=== PATIENT | female | born 1970 | race Caucasian/White ===

== ENCOUNTER 2020-01-01 11:03 | Outpatient (REF) | payer OTHER, SELFPAY | END 2020-01-01 11:04 | disposition home or self-care (01) | LOC: HO.HAP 11:03 | PROVIDERS: PCP Internal Medicine; Referring Provider Internal Medicine; Visit Provider Internal Medicine | DX: Z46.1 Encounter for fitting and adjustment of hearing aid (principal) | CPT/HCPCS: V5266 ==

== ENCOUNTER 2020-06-04 | Outpatient (REF) | payer OTHER, SELFPAY | END 2020-06-04 00:01 | LOC: HO.HAP | PROVIDERS: Visit Provider Internal Medicine | DX: Z46.1 Encounter for fitting and adjustment of hearing aid (principal) | CPT/HCPCS: V5266 ==

== ENCOUNTER 2020-12-02 17:20 | Inpatient (IN) | payer OTHER, SELFPAY ==
--- NOTE | ~2020-12-02 | US_ITS ---
EXAMINATION: US ABDOMEN LIMITED CLINICAL INFORMATION: Right upper quadrant pain. COMPARISON: None TECHNIQUE: Real-time imaging of the right upper quadrant abdominal viscera. FINDINGS: PANCREAS: Normal. LIVER: There is increased hepatic parenchymal attenuation which limits evaluation of subtle lesions. Accounting for these limitations, no focal abnormalities are identified. There is no biliary ductal dilatation. GALLBLADDER: There are multiple gallbladder stones with a small amount of pericholecystic fluid but no gallbladder wall thickening which measures up to 0.3 cm . There are a few hyperechoic foci in the wall of the gallbladder with comet tail artifact, likely related with adenomyomatosis. COMMON BILE DUCT: Normal in caliber measuring 0.3 cm in diameter. RIGHT KIDNEY: Normal. No hydronephrosis. No renal calculi or focal parenchymal lesions. The kidney measures 10.1 cm in maximum dimension. FREE FLUID: None. US/US abdomen limited IMPRESSION: Cholelithiasis with small amount of pericholecystic fluid but no wall thickening and a negative Urbina's sign. Findings are equivocal for cholecystitis and if clinically suspected, recommend further evaluation with a hepatobiliary nuclear medicine study. Adenomyomatosis. Hepatic steatosis and/or hepatocellular disease.
[2020-12-02 19:24] VITALS: BP 120/60; PULSE 69; RESP 16; TEMP 36.7; O2SAT 95; BMI 37.2
[2020-12-02 20:05] LABS: MANUAL DIFF FLAG NO
[2020-12-02 20:16] LABS: Basophils Percent Auto 0.3 % (0-2); Eosinophils Absolute Auto 0.2 X10*3/uL (0.0-0.4); Eosinophils Percent Auto 2.3 % (0-4); Hematocrit 47.1 % (37-47); Hemoglobin 15.9 g/dl (12.0-16.0); Imm Gran Abs Auto 0.03 X10*3/uL (0.00-0.03); Imm Gran Pct Auto 0.3 % (0.0-0.4); Lymphocytes Absolute Auto 3.1 X10*3/uL (1.2-4.9); Lymphocytes Percent Auto 33.2 % (20-40); Mean Corpuscular HGB Conc 33.8 g/dl (31.0-35.0); Mean Corpuscular Hemoglobin 31.7 pg (27.0-33.0); Mean Corpuscular Volume 93.8 fL (80-98); Mean Platelet Volume 9.5 fL (9.4-12.3); Monocytes Absolute Auto 0.6 X10*3/uL (0.1-1.2); Monocytes Percent Auto 6.9 % (2-11); Neutrophils Absolute Auto 5.3 X10*3/uL (2.0-8.3); Platelet Count 241 X10*3/uL (160-400); Red Blood Count 5.02 X10*6/uL (4.20-5.50); Red Cell Distribution Width 12.6 % (11.0-16.0); White Blood Count 9.3 X10*3/uL (4.8-10.8)
[2020-12-02 20:19] LABS: Anion Gap 12 (12-20); Blood Urea Nitrogen 11 mg/dL (9-16); Calcium 9.6 mg/dL (8.4-10.2); Carbon Dioxide 27 mmol/L (22-29); Chloride 104 mmol/L (96-108); Creatinine Clr Calc Pharmacy 81.2; Estimated Glomerular Filt Rate > 60; Glucose Random 93 mg/dL (60-115); Potassium 4.1 mmol/L (3.3-5.1); Sodium 139 mmol/L (135-145)
[2020-12-02 22:03] VITALS: BP 111/63; PULSE 66; RESP 14; TEMP 36.6; O2SAT 96
--- NOTE | 2020-12-02 22:28 | ED_ITS ---
HPI - Abdominal Pain General Chief Complaint: Abdominal Pain Stated Complaint: Abdominal pain Time Seen by Provider: 12/02/20 22:27 Source: patient Mode of arrival: ambulatory Limitations: no limitations History of Present Illness HPI narrative: Patient with no significant past medical history notice right upper quadrant, epigastric pain for last 2 days increases on after meals associated with nausea no vomiting no fever or chills patient does have off and on mild discomfort at upper quadrant for last few months but not been evaluated Related Data Allergies Allergy/AdvReac Type Severity Reaction Status Date / Time No Known Allergies Allergy Unverified 11/14/19 18:35 [No Known Allergies*] Review of Systems Review of Systems Yes all other systems are reviewed and are negative Physical Exam Vital Signs: Vital Signs: Last Vital Signs Temp 97.9 F 12/02/20 22:03 Pulse 66 12/02/20 22:03 Resp 14 12/02/20 22:03 BP 111/63 12/02/20 22:03 Pulse Ox 96 12/02/20 22:03 Body Mass Index 37.2 Appearance: Alert. Oriented X3. No acute distress. Eyes: No pallor or icterus ENT: Pharynx normal. Oral Mucosa moist Neck: Normal inspection. Neck supple. CVS: Normal heart rate and rhythm. Pulses normal. Respiratory: No respiratory distress. Equal air entry bilateral, no wheezing/rales/rhonchi Abdomen: Soft and tenderness right upper quadrant with guarding, Urbina sign positive+ tender epigastric area Bowel sounds are present, no mass palpable, no CVA tenderness Skin: Skin warm and dry. Normal skin color. Normal skin turgor. Extremities: No lower extremity edema. No calf tenderness Neuro: Oriented X 3. MDM - Abdominal Pain MDM Narrative Medical decision making narrative: Patient with R upper quadrant pain ultrasound showed cholelithiasis without cholecystitis finding patient is still complaining of pain very uncomfortable , Urbina sign positive, would like to get admitted for surgery will call Dr. Coates surgeon for admission Patient rapid COVID test was positive , patient already been vaccinated with COVID-19, no symptoms at this time , Hence PCR COVID test was done which was negative Differential Diagnosis Differential diagnosis: Likely abdominal pain Lab Data Attestation: I reviewed the patient's lab results. Result diagrams: 12/02/20 19:58 12/02/20 19:58 Labs: Lab Results 12/02/20 12/02/20 Range/Units 19:58 19:58 WBC 9.3 (4.8-10.8) X10*3/uL RBC 5.02 (4.20-5.50) X10*6/uL Hgb 15.9 (12.0-16.0) g/dl Hct 47.1 H (37-47) % MCV 93.8 (80-98) fL MCH 31.7 (27.0-33.0) pg MCHC 33.8 (31.0-35.0) g/dl RDW 12.6 (11.0-16.0) % Plt Count 241 (160-400) X10*3/uL MPV 9.5 (9.4-12.3) fL Immature Gran % (Auto) 0.3 (0.0-0.4) % Neut % (Auto) 57.0 (45-73) % Lymph % (Auto) 33.2 (20-40) % Gila % (Auto) 6.9 (2-11) % Eos % (Auto) 2.3 (0-4) % Baso % (Auto) 0.3 (0-2) % Lymph # (Auto) 3.1 (1.2-4.9) X10*3/uL Gila # (Auto) 0.6 (0.1-1.2) X10*3/uL Eos # (Auto) 0.2 (0.0-0.4) X10*3/uL Baso # (Auto) 0.0 (0.0-0.2) X10*3/uL Abs Immat Gran (auto) 0.03 (0.00-0.03) X10*3/uL Absolute Neuts (auto) 5.3 (2.0-8.3) X10*3/uL Absolute Nucleated RBC 0.000 (0.0-0.012) X10*3/uL Nucleated RBC % (auto) 0.0 (0.0-0.2) /100WBC Sodium 139 (135-145) mmol/L Potassium 4.1 (3.3-5.1) mmol/L Chloride 104 (96-108) mmol/L Carbon Dioxide 27 (22-29) mmol/L Anion Gap 12 (12-20) BUN 11 (9-16) mg/dL Creatinine 0.91 (0.5-1.4) mg/dL Estim Creat Clear Calc 81.2 Estimated GFR > 60 Random Glucose 93 (60-115) mg/dL Calcium 9.6 (8.4-10.2) mg/dL Total Bilirubin 0.4 (0.0-1.0) mg/dL Direct Bilirubin 0.2 (0.0-0.5) mg/dL AST 16 (5-31) U/L ALT 25 (0-31) U/L Alkaline Phosphatase 75 (39-117) U/L Total Protein 7.5 (6.5-8.0) g/dL Albumin 4.4 (3.5-5.0) g/dL Lipase 27 (8-78) U/L Discharge Plan Discharge Clinical Impression: Acute calculous cholecystitis Patient Disposition: Admitted As Inpatient [facility] Past Medical History Medical History Adult hypothyroidism Migraines Social History Social History Advance Directives: No
[2020-12-02 23:00] LABS: Alanine Aminotransferase 25 U/L (0-31); Albumin Level 4.4 g/dL (3.5-5.0); Alkaline Phosphatase 75 U/L (39-117); Aspartate Amino Transferase 16 U/L (5-31); Bilirubin Direct 0.2 mg/dL (0.0-0.5); Bilirubin Total 0.4 mg/dL (0.0-1.0); Lipase 27 U/L (8-78); Total Protein 7.5 g/dL (6.5-8.0)
[2020-12-02] MEDS: 0.9 % Sodium Chloride 1,000 ML 999 ML IVCONT (23:03)
[2020-12-02] MEDS: ondansetron HCL 4 MG/2 ML VIAL IVPUSH (23:03)
[2020-12-02] MEDS: Famotidine/PF 20 MG/2 ML VIAL IVPUSH (23:03)
[2020-12-02] MEDS: Morphine Sulfate 4 MG/ML CARTRIDGE IVPUSH (23:53)
[2020-12-03] VITALS (14 sets, daily range): BP systolic 95–144; BP diastolic 46–86; PULSE 54–76; RESP 16–22; TEMP 36.2–36.8; O2SAT 93–98
--- NOTE | 2020-12-03 | PC.NURSE ---
CALLED [facility] @[phone] FOR CALL BACK
--- NOTE | 2020-12-03 00:07 | PC.NURSE ---
Aminata returned call at [phone]
[2020-12-03 00:51] LABS: IDNOW Serial# 9DD0AD1C
[2020-12-03 00:53] LABS: COVID-19 Test Positive (Negative)
[2020-12-03] MEDS: Piperacillin Sodium/Tazobactam 3.375 GM in 0.9 % Sodium Chloride 50 ML IV (01:37)
[2020-12-03 01:43] LABS: Influenza A PCR NEGATIVE (Negative); Influenza B PCR NEGATIVE (Negative); Resp Syncy Virus RNA Qual PCR NEGATIVE (Negative); SARS COV2 PCR INHOUSE NEGATIVE (Negative)
[2020-12-03] MEDS: Dextrose 5 % and Lactated Ring 1,000 ML 125 ML IVCONT ×2 (02:32→12:17)
--- NOTE | 2020-12-03 07:42 | PM.HPGS ---
History of Present Illness History of Present Illness Date of Service: 12/03/20 Chief complaint: Acute cholecystitis Narrative: Socorro Augustin is a 50 year old female presenting with complaints of abdominal pain in the right upper quadrant radiating to the right flank. The pain is been on off for the last several weeks but increased over the last several days. The pain was associated with some nausea without vomiting. She denies fever or chills. She presented to the emergency department last evening and was noted to be tender in the right upper quadrant with a positive Urbina sign. Laboratories were normal however. Ultrasound of the abdomen revealed multiple gallstones within the gallbladder with a thickened gallbladder wall and pericholecystic fluid. A negative sonographic Urbina sign was noted however. Patient is admitted to the surgical service for treatment of acute cholecystitis. Patient was noted to be COVID positive on the rapid test but negative on the PCR testing. She denies any respiratory symptoms at this time. She is fully vaccinated for COVID-19. Review of Systems Review of Systems: Yes all other systems are reviewed and are negative Constitutional: Constitutional: Denies chills, Denies fever(s) and Reports poor appetite Cardiovascular: Cardiovascular: Denies chest pain, Reports epigastric discomfort, Denies rapid heart rate, Denies irregular heart rhythm and Denies dyspnea Respiratory: Respiratory: Denies chest congestion, Denies cough, Denies excessive phlegm production, Denies pain with cough and Denies dyspnea Gastrointestinal: Gastrointestinal: Reports as per HPI, Reports abdominal pain, Denies constipation, Reports diarrhea, Reports nausea and Denies vomiting Genitourinary: Genitourinary: Reports no additional female genitourinary complaints Musculoskeletal: Musculoskeletal: Reports no additional musculoskeletal complaints Psychiatric: Psychiatric: Reports no additional psychiatric complaints Hematologic/Lymphatic: Hematologic/Lymphatic: Denies lymphadenopathy [facility] Past Medical History Medical History Adult hypothyroidism Migraines Surgical History Surgical History H/O thyroidectomy H/O: hysterectomy Social History Social History Advance Directives: No Meds Allergies Allergy/AdvReac Type Severity Reaction Status Date / Time No Known Allergies Allergy Unverified 11/14/19 18:35 [No Known Allergies*] Active Medications: Current Medications Acetaminophen (Acetaminophen 325 Mg Tablet) 650 mg PO Q6H PRN PRN Reason: Pain, Mild (Pain Scale 1-3) Dextrose/Lactated Ringer's (D5lr) 1,000 mls @ 125 mls/hr IVCONT .Q8H [facility] Last Admin: 12/03/20 02:32 Dose: 125 mls/hr Documented by: Morphine Sulfate (Morphine Sulfate 4 Mg/Ml Cartridge) 4 mg IVPUSH Q2H PRN; Protocol PRN Reason: Pain, Severe (Pain Scale 7-10) Ondansetron HCl (Ondansetron Hcl 4 Mg/2 Ml Vial) 4 mg IVPUSH QID PRN PRN Reason: Nausea Oxycodone HCl (Oxycodone Hcl Immed Release 5 Mg Tablet) 5 mg PO Q6H PRN PRN Reason: Pain, Severe (Pain Scale 7-10) Sodium Chloride (0.9 % Sodium Chloride Flush 3 Ml Syringe) 3 ml IVFLUSH QSHIFT [facility] Zolpidem Tartrate (Zolpidem Tartrate 5 Mg Tablet) 5 mg PO BEDTIME PRN PRN Reason: Insomnia Home Medications Medication Instructions Recorded Confirmed Last Taken Type lblkgexvll-pelmzyqtufafe-tscteenj 1 tab PO DAILY MRX1 PRN 12/03/20 Unknown History 50 mg-325 mg-40 mg tablet fluocinolone acetonide oil 0.01 % 2 drp OTIC (EARS) 2XW 12/03/20 Unknown History ear drops levothyroxine 150 mcg tablet 1 tab PO DAILY 12/03/20 Unknown History propranolol 20 mg tablet 1 tab PO DAILY 12/03/20 Unknown History trazodone 50 mg tablet 1 tab PO BEDTIME 12/03/20 Unknown History venlafaxine 37.5 mg 37.5 mg PO DAILY 12/03/20 Unknown History capsule,extended release 24 hr Physical Exam Vital Signs: Vital Signs: Last Vital Signs Temp 98.2 F 12/03/20 02:06 Pulse 58 12/03/20 02:06 Resp 16 12/03/20 02:06 BP 95/46 L 12/03/20 02:06 Pulse Ox 95 12/03/20 02:06 Body Mass Index 37.2 Const: General: cooperative, comfortable, no acute distress and well developed Nutritional Appearance: well nourished Orientation/consciousness: patient oriented x3 Limitations: no limitations Eyes: Sclerae: sclerae normal EOM: EOMs intact bilaterally Resp: Effort & Inspection: normal respiratory effort, no cough and no respiratory distress Auscultation: clear to auscultation bilaterally GI: Inspection: Yes normal to inspection, Yes distended and Yes incision Palpation (GI): Soft to palpation, Tenderness to palpation present (GI) in the RUQ and Urbina's sign positive and no hernias Auscultation: normal bowel sounds Rectal Exam - Female: deferred Skin: General skin exam: no rashes or lesions noted Neuro: General: patient oriented x3 Extrem: General: Yes no clubbing, cyanosis or edema Results Results Labs: Short CBC 12/02/20 Range/Units 19:58 WBC 9.3 (4.8-10.8) X10*3/uL Hgb 15.9 (12.0-16.0) g/dl Hct 47.1 H (37-47) % Plt Count 241 (160-400) X10*3/uL BMP 12/02/20 19:58 Sodium 139 Potassium 4.1 Chloride 104 Carbon Dioxide 27 BUN 11 Creatinine 0.91 Calcium 9.6 Liver Function 12/02/20 Range/Units 19:58 Total Bilirubin 0.4 (0.0-1.0) mg/dL Direct Bilirubin 0.2 (0.0-0.5) mg/dL AST 16 (5-31) U/L ALT 25 (0-31) U/L Alkaline Phosphatase 75 (39-117) U/L Albumin 4.4 (3.5-5.0) g/dL Abdominal ultrasound report/results: image reviewed Assessment and Plan (1) Acute calculous cholecystitis: Status: Acute 50-year-old female patient presenting with pain in the right upper quadrant found to have gallstones with wall thickening suggestive of acute cholecystitis. Patient is tender in the right upper quadrant with Urbina sign. I discussed the option of non operative management with diet restriction verses cholecystectomy. The patient wishes to proceed with cholecystectomy. After discussion of the procedure, risks, and alternatives, she consents to a laparoscopic or possible open cholecystectomy. Surgery scheduled pending COVID repeat testing. Quality Stroke Does the patient have a stroke diagnosis?: No VTE Prior VTE?: No VTE Risk Level:: Surgical - moderate VTE Device Contraindication: N/A - Device Ordered VTE Drug Contraindication: Treatment Not Indicated Procedures Date of Service Date of Service: 12/03/20
--- NOTE | 2020-12-03 07:45 | PC.NURSE ---
DR. GILMORE ATT BEDSIDE, PT AWARE OF PLAN OF CARE.
[2020-12-03 07:53] LABS: COVID-19 Test Negative (Negative); IDNOW Serial# 9DD0AD1C
--- NOTE | 2020-12-03 08:21 | PHA.MEDREC ---
Pharmacy Consult ? Medication Reconciliation Pharmacy has completed the medication reconciliation. There are no remarkable issues for provider's attention. Naomi Bartlett, MatiasD
--- NOTE | 2020-12-03 08:22 | PC.NURSE ---
pt c/o slight nausea.
[2020-12-03] MEDS: ondansetron HCL 4 MG/2 ML VIAL IVPUSH (08:23)
--- NOTE | 2020-12-03 08:36 | PC.NURSE ---
RN TO RN REPORT GIVEN TO JADON ANGEL) IN PACU.
--- NOTE | 2020-12-03 09:03 | HO.ANESPROP2 ---
HPI - Anesthesia Eval Consult details Narrative: 50-year-old female presenting for cholecystectomy secondary to acute Calculous cholecystitis. [facility] Active Problems Active Problems: All Active Problems (Updated 12/03/20 @ 00:25 by Mauri Shook MD) Acute calculous cholecystitis (Acute) Past Medical History Medical History Adult hypothyroidism Migraines Family History Family history of problems with anesthesia: No Surgical History Surgical History H/O thyroidectomy H/O: hysterectomy History of Problems with Anesthesia: No Social History Social History Patient Tobacco Use Status: Current everyday Tobacco user Tobacco use type: Cigarette Cigarettes Per Day: 15 Years Smoked: 42 Meds Allergies Allergy/AdvReac Type Severity Reaction Status Date / Time No Known Allergies Allergy Verified 12/03/20 09:03 [No Known Allergies*] Active Medications: Current Medications Acetaminophen (Acetaminophen 325 Mg Tablet) 650 mg PO Q6H PRN PRN Reason: Pain, Mild (Pain Scale 1-3) Dextrose/Lactated Ringer's (D5lr) 1,000 mls @ 125 mls/hr IVCONT .Q8H [facility] Last Admin: 12/03/20 02:32 Dose: 125 mls/hr Documented by: Morphine Sulfate (Morphine Sulfate 4 Mg/Ml Cartridge) 4 mg IVPUSH Q2H PRN; Protocol PRN Reason: Pain, Severe (Pain Scale 7-10) Ondansetron HCl (Ondansetron Hcl 4 Mg/2 Ml Vial) 4 mg IVPUSH QID PRN PRN Reason: Nausea Last Admin: 12/03/20 08:23 Dose: 4 mg Documented by: Oxycodone HCl (Oxycodone Hcl Immed Release 5 Mg Tablet) 5 mg PO Q6H PRN PRN Reason: Pain, Severe (Pain Scale 7-10) Sodium Chloride (0.9 % Sodium Chloride Flush 3 Ml Syringe) 3 ml IVFLUSH QSHIFT [facility] Zolpidem Tartrate (Zolpidem Tartrate 5 Mg Tablet) 5 mg PO BEDTIME PRN PRN Reason: Insomnia Home Medications Medication Instructions Recorded Confirmed Last Taken Type levothyroxine 150 mcg tablet 1 tab PO DAILY 12/03/20 12/03/20 12/02/20 History propranolol 20 mg tablet 1 tab PO DAILY 12/03/20 12/03/20 12/01/20 History trazodone 50 mg tablet 1 tab PO BEDTIME 12/03/20 12/03/20 12/01/20 History Exam Exam Date and Time: December 03, 2020 09 Height,Weight and Vital Signs: Height 5 ft 3 in Weight 210 lb Last Vital Signs Temp 97.8 F 12/03/20 08:32 Pulse 65 12/03/20 08:32 Resp 17 12/03/20 08:32 BP 129/74 12/03/20 08:32 Pulse Ox 97 12/03/20 08:32 Pertinent Lab Results Pertinent Lab Results: Laboratory Tests 12/02/20 12/02/20 12/03/20 19:58 19:58 00:37 WBC 9.3 RBC 5.02 Hgb 15.9 Hct 47.1 H MCV 93.8 MCH 31.7 MCHC 33.8 RDW 12.6 Plt Count 241 MPV 9.5 Immature Gran % (Auto) 0.3 Neut % (Auto) 57.0 Lymph % (Auto) 33.2 Webb % (Auto) 6.9 Eos % (Auto) 2.3 Baso % (Auto) 0.3 Lymph # (Auto) 3.1 Webb # (Auto) 0.6 Eos # (Auto) 0.2 Baso # (Auto) 0.0 Abs Immat Gran (auto) 0.03 Absolute Neuts (auto) 5.3 Absolute Nucleated RBC 0.000 Nucleated RBC % (auto) 0.0 Sodium 139 Potassium 4.1 Chloride 104 Carbon Dioxide 27 Anion Gap 12 BUN 11 Creatinine 0.91 Estim Creat Clear Calc 81.2 Estimated GFR > 60 Random Glucose 93 Calcium 9.6 Total Bilirubin 0.4 Direct Bilirubin 0.2 AST 16 ALT 25 Alkaline Phosphatase 75 Total Protein 7.5 Albumin 4.4 Lipase 27 Coronavirus (PCR) COVID-19 ([facility]) Positive A COVID-19 Clin Com See Note Influenza Type A (PCR) Influenza Type B (PCR) RSV RNA Qual (PCR) 12/03/20 12/03/20 00:58 07:34 WBC RBC Hgb Hct MCV MCH MCHC RDW Plt Count MPV Immature Gran % (Auto) Neut % (Auto) Lymph % (Auto) Webb % (Auto) Eos % (Auto) Baso % (Auto) Lymph # (Auto) Webb # (Auto) Eos # (Auto) Baso # (Auto) Abs Immat Gran (auto) Absolute Neuts (auto) Absolute Nucleated RBC Nucleated RBC % (auto) Sodium Potassium Chloride Carbon Dioxide Anion Gap BUN Creatinine Estim Creat Clear Calc Estimated GFR Random Glucose Calcium Total Bilirubin Direct Bilirubin AST ALT Alkaline Phosphatase Total Protein Albumin Lipase Coronavirus (PCR) NEGATIVE COVID-19 ([facility]) Negative COVID-19 Clin Com See Note Influenza Type A (PCR) NEGATIVE Influenza Type B (PCR) NEGATIVE RSV RNA Qual (PCR) NEGATIVE Airway Mallampati Class: III TM Dist: >3cm Neck ROM: Full Loose/Missing/Broken Teeth: No Assessment and Plan Assessment Anesthesia Assessment: Anesthesia Plan Discussed and Chart Reviewed Final Anesthetic Review Family History of Problems with Anesthesia: No History of Problems with Anesthesia: No NPO: Yes ASA Class: III Final Preanesthetic Review: No Changes in Pt Med Stat, Meds/Allgs Chart Reviewed, Consent Obtained/Reviewed and Anes Risks/Benef Reviewed Patient Risk: Intermediate Procedure Risk: Low Anesthetic Plan Anesthetic Plan: GA Disposition: Standard PACU
--- NOTE | 2020-12-03 09:09 | PC.NURSE ---
Patient arrived to [facility] preop from ED with #20 PRN angio in left AC. Line asymptomatic and flushed well.
[2020-12-03] MEDS: Lactated Ringers 1,000 ML 50 ML IVCONT (09:32)
[2020-12-03] MEDS: cefoTEtan disodium 2 GM in 0.9 % Sodium Chloride 50 ML IV (09:50)
--- NOTE | 2020-12-03 10:58 | P.OP_ITS ---
Operative Note Operative Note Date of Service: 12/03/20 Narrative: Preoperative diagnosis: acute cholecystitis, cholelithiasis Postoperative diagnosis: Same Procedure: Laparoscopic cholecystectomy Surgeon: Ravi Coates MD Facility Sales And Admin: no physician Anesthesia: General endotracheal Indications for procedure: 50-year-old female patient presenting with complaints of abdominal pain in the right upper quadrant which is increasing in severity over the last several days. The food seems to increase her pain. She also reports nausea without vomiting. She presented to the emergency department was noted to have a thickened gallbladder wall with multiple gallstones within the g allbladder. There is also pericholecystic fluid. Findings were consistent with acute cholecystitis. Operative findings: Acutely inflamed gallbladder with an edematous wall and multiple gallstones suggestive of acute cholecystitis Specimen: gallbladder Estimated blood loss: 5 mL Complications: none Procedure details: Patient was brought to the OR and placed in a supine position. After administering general anesthesia the patient's abdomen was prepped with ChloraPrep and draped in a sterile fashion. Local anesthesia consisting of 0.5% Sensorcaine without epinephrine was infiltrated in a periumbilical region. A 5 mm incision was made above the umbilicus in a transverse fashion. The Veress needle was then inserted while elevating abdominal cavity with towel clips. After positive drop test the abdomen was insufflated to a pressure of 15 mm of mercury. The Veress needle was then removed and a 5 mm trocar inserted. The camera was inserted in the abdomen explored. A 12 mm trocar was then placed in the epigastrium and two 5 mm trocars placed in the right upper quadrant. The patient was placed in reverse Trendelenburg positioning and rotated to the left. The gallbladder was grasped with the fundus and retracted cephalad.. The infundibulum was then grasped and retracted away from the liver bed. The Dolphin dissector was then used to dissect the peritoneum off the infundibulum to reveal the junction with the cystic duct. Cystic artery was noted slightly medial and posterior to the cystic duct. After obtaining a critical view the cystic duct was doubly clipped and divided. The cystic artery was then doubly clipped and divided. The gallbladder was then dissected off the liver bed using electrocautery with an L hook. Hemostasis was assured all times using the electrocautery. When the gallbladder is completely dissected off the liver bed was placed in an Endo- Catch bag and brought out through the epigastric incision. The gallbladder was sent to pathology for further examination. The abdomen was then re-examined. The liver bed was irrigated and suctioned dry. No bleeding or bile leak could be identified. CO2 was then evacuated and all trocars removed. Fascia was closed at the epigastric incision using a [id number] 0 Polysorb suture. Skin was closed in all incisions using a subcuticular 4 0 Polysorb suture. Sterile dressings consisting of Steri-Strips, 2 x 2 gauze, and Tegaderm were then applied. The patient tolerated the procedure well. Sponge instrument and needle counts reported as correct. The patient was transferred to PACU in stable condition.
--- NOTE | 2020-12-03 10:58 | MHC.CM.PN ---
Patient transferred to Same day surgery before she could be seen by case management. Continue to monitor for d/c needs.
[2020-12-03] MEDS: HYDROmorphone HCl 0.5 MG/0.5 ML SYRINGE 0.25 MG IVPUSH ×2 (11:25→11:35)
[2020-12-03] MEDS: Acetaminophen 325 MG TABLET 650 MG PO (15:20)
--- NOTE | 2020-12-08 16:44 | PM.DS ---
DS: Providers Provider Date of Service: 12/03/20 Date of admission: 12/03/20 00:12 Date of discharge: 12/03/20 Primary care physician: Renita Qiu MD Admitting clinician: Ravi Coates Discharging clinician: Ravi Coates DS: Diagnosis Discharge Diagnosis (1) Acute calculous cholecystitis: Status: Acute DS: Summary Hospital Course Hospital Course: Socorro Augustin is a 50 year old female presenting with complaints of abdominal pain in the right upper quadrant radiating to the right flank.? The pain is been on off for the last several weeks but increased over the last several days.? The pain was associated with some nausea without vomiting.? She denies fever or chills.? She presented to the emergency department last evening and was noted to be tender in the right upper quadrant with a positive Urbina sign.? Laboratories were normal however.? Ultrasound of the abdomen revealed multiple gallstones within the gallbladder with a thickened gallbladder wall and pericholecystic fluid.? A negative sonographic Urbina sign was noted however.? Patient is admitted to the surgical service for treatment of acute cholecystitis.? Patient was noted to be COVID positive on the rapid test but negative on the PCR testing.? She denies any respiratory symptoms at this time.? She is fully vaccinated for COVID-19. She was taken to the OR on the day of admission (12/03/2020) for a laparoscopic or possible open cholecystectomy. Operative findings at laparoscopic cholecystectomy revealed acutely inflamed gallbladder with thickened gallbladder wall and multiple gallstones within the gallbladder. She tolerated the procedure well and was observed postoperatively for several hours. The patient tolerated a regular diet without nausea or vomiting. She was reasonably comfortable with oral pain medications and requested discharge to home. She was subsequently discharged to home in stable condition on 12/03/2020. Discharge instructions were to avoid lifting greater than 10 lb for the next 2 weeks following surgery. She should also remain on a low-fat diet for approximately 1 month. I have asked her to return to the office in approximately 1 week for wound examination. She should call sooner for fever, chills, increased abdominal pain, or other concerns. Status at Discharge Functional status at discharge: independent ambulation Time Spent with Patient Time attestation: Total time spent providing and/or coordinating discharge services: Discharge coordination time: Less than 30 minutes Quality: Stroke Does the patient have a stroke diagnosis?: No Physical Exam Vital Signs: Vital Signs: Last Vital Signs Temp 97.7 F 12/03/20 15:26 Pulse 64 12/03/20 15:26 Resp 17 12/03/20 15:26 BP 118/62 12/03/20 15:26 Pulse Ox 95 12/03/20 15:26 Body Mass Index 37.2 Const: General: comfortable, no acute distress, alert and awake Nutritional Appearance: well nourished Orientation/consciousness: patient oriented x3 Limitations: no limitations Eyes: Sclerae: sclerae normal EOM: EOMs intact bilaterally Resp: Effort & Inspection: normal respiratory effort, no cough and no respiratory distress Auscultation: clear to auscultation bilaterally GI: Other: Intact incisions following laparoscopic cholecystectomy Inspection: Yes normal to inspection Palpation (GI): Soft to palpation, no guarding and not rigid Skin: Other: Warm, dry, no rash Neuro: General: patient oriented x3 DS: Data Data Completed and Pending Completed studies during hospitalization [Text1]: Pending at discharge 12/03/20 10:21 Surgical [PTH] Routine Procedures Resection of Gallbladder, Percutaneous Endoscopic Approach (12/03/20) Discharge Plan Discharge Patient Disposition: Home, Self-Care Discharge Diagnosis: s/p laparoscopic cholecystectomy Referrals: Renita Qiu MD [Primary Care Provider] - 1 Week Ravi Coates MD [Physician] - 1 Week Discharge Medications: New oxycodone 5 mg tablet 5 mg PO Q6H PRN (Reason: pain) Qty: 14 RF: 0 Continued trazodone 50 mg tablet 1 tab PO BEDTIME RF: 0 levothyroxine 150 mcg tablet 1 tab PO DAILY RF: 0 propranolol 20 mg tablet 1 tab PO DAILY RF: 0 Discharge Orders: Discharge Order (Routine); Ordered 12/03/20 Ordered By: Ravi Coates Diet: low fat, low cholesterol Activity on Discharge: No heavy lifting Stand Alone Forms: Patient Portal Discharge page Activity Restrictions/Additional Instructions: If the incision area is tender, you may apply an ice pack for short intervals (No more than 20 minutes on, followed by at least 20 minutes off). Do not apply heat. Do not use creams, lotions, or topical antibiotics unless instructed to do so by your surgeon. These can cause infection or allergic reaction. Ok to shower. Remove clear dressings 3 days following your procedure. You have steri strips (small white cloth strips) covering your incision- these will fall off ~1 week. No heavy lifting (>10lbs)! Follow up in office with Dr. Coates in 1 week. ([phone]) Call Your Doctor If: -Your temperature exceeds 101.5? F -You experience excessive pain or swelling -You have an unexpected reaction to medication -You have excessive bleeding -You experience continued vomiting/nausea -Your incision begins to separate -Your incision shows signs of infection such as increased redness, swelling, excessive pain, drainage (light blood or clear fluid is normal) or heat Care Plan Goals: Return to baseline health and gradual return to activity following recovery period. Health Concerns: s/p laparoscopic cholecystectomy Plan of Treatment: Pain control, discharge to home, f/u in office Assessment: Doing well post op. Discharge Date/Time: 12/03/20 20:16
== END 2020-12-03 20:16 | disposition home or self-care (01) | DRG 263 ==
LOC: HO.ED 12-03 00:25 → HO.EDOVER 12-03 01:18 → HO.S3 12-03 12:36
PROVIDERS: Emergency Medicine; Admitting Provider Surgery; Emergency Provider Internal Medicine; PCP Internal Medicine; Visit Provider Surgery
PROC: 0FT44ZZ Resection of Gallbladder, Percutaneous Endoscopic Approach (ICD-10-PCS; CPT 47562; principal; 2020-12-03 09:30)
DX: K80.00 Calculus of gallbladder with acute cholecystitis without obstruction (principal); F17.210 Nicotine dependence, cigarettes, uncomplicated; Z71.6 Tobacco abuse counseling; Z79.890 Hormone replacement therapy; Z79.899 Other long term (current) drug therapy
CPT/HCPCS: 47562; 0241U; 36415; 76705; 80048; 80076; 83690; 85025; 87635; 88304; 99285; J1100; J1170; J2250; J2270; J2405; J2543; J2550; J3010

== ENCOUNTER → 2020-12-10 13:45 | Outpatient (BNVA) | payer OTHER, SELFPAY | PROVIDERS: PCP Internal Medicine; Visit Provider Surgery | DX: Z48.815 Encounter for surgical aftercare following surgery on the digestive system (principal); Z90.49 Acquired absence of other specified parts of digestive tract | CPT/HCPCS: 99212 ==

== ENCOUNTER 2021-07-20 15:25 | Outpatient (REF) | payer OTHER, SELFPAY | END 2021-07-20 15:26 | disposition home or self-care (01) | LOC: HO.HAP 15:25 | PROVIDERS: Visit Provider Internal Medicine | DX: Z46.1 Encounter for fitting and adjustment of hearing aid (principal); H90.5 Unspecified sensorineural hearing loss | CPT/HCPCS: V5266 ==

== ENCOUNTER 2024-01-17 15:15 | Emergency (ER) | payer OTHER, SELFPAY ==
[2024-01-17 15:26] VITALS: BP 153/63; PULSE 100; RESP 9; TEMP 37.2; O2SAT 96; BMI 34.0
--- NOTE | 2024-01-17 15:28 | ED_ITS ---
HPI - General Adult General Chief complaint: General Medical Stated complaint: ?allergic reaction Time Seen by Provider: 01/17/24 16:13 Source: patient Limitations: no limitations History of Present Illness ED Provider: Odette lazo PA-C HPI narrative: 53-year-old female with a history of hypothyroidism presents with vaginitis. Patient states she was seen at urgent Care, she was found to have BV. She was p laced on p.o. Flagyl. Patient developed a rash over her abdomen upper extremities and scattered lesions over the lower extremities. It is nonpainful, nonpruritic. Patient has been nauseous since she started the Flagyl. In addition, patient was told she had a ?bleeding wound?, inferior to her vaginal opening. She states a script for amoxicillin was sent to the pharmacy but she has yet to pick it up. She is requesting another exam, she is not sure that she has received appropriate treatment. Related Data Home Medications ?Medication ?Instructions ?Recorded ?Confirmed levothyroxine 150 mcg tablet 1 tab PO DAILY 12/03/20 12/03/20 propranolol 20 mg tablet 1 tab PO DAILY 12/03/20 12/03/20 trazodone 50 mg tablet 1 tab PO BEDTIME 12/03/20 12/03/20 Previous Rx's ?Medication ?Instructions ?Recorded oxycodone 5 mg tablet 5 mg PO Q6H PRN pain #14 tabs 12/03/20 clindamycin phosphate 2 % vaginal 1 appful vaginal BEDTIME 7 days 01/17/24 cream #40 grams methylprednisolone 4 mg tablets in 4 mg PO DAILY #1 ea 01/17/24 a dose pack (Medrol (Kris)) Allergies Allergy/AdvReac Type Severity Reaction Status Date / Time No Known Allergies Allergy Verified 01/17/24 15:29 [No Known Allergies*] Review of Systems Review of Systems: Yes all other systems are reviewed and are negative Constitutional: Constitutional: Denies fatigue and Denies fever(s) Cardiovascular: Cardiovascular: Denies chest pain and Denies dyspnea Respiratory: Respiratory: Denies dyspnea Gastrointestinal: Gastrointestinal: Denies abdominal pain, Reports nausea and Denies vomiting Genitourinary: Genitourinary: Reports vaginal discharge, Reports vaginal odor and Reports vaginal pruritus Endocrine: Endocrine: Denies fatigue PMFSH Past Medical History Attestation statement: The following information was validated with the patient. Medical History Adult hypothyroidism Migraines Surgical History H/O thyroidectomy H/O: hysterectomy Social History Social History Patient Tobacco Use Status: Current everyday Tobacco user Tobacco use type: Cigarette Cigarettes Per Day: 15 Years Smoked: 42 Advance Directives: No Advance Directives Information Provided: No Do you have a plan to hurt others: No Plan Physical Exam ED Vital Signs: Vital Signs - 24 hr 01/17/24 15:26 Temperature 99 F Pulse Rate 100 Respiratory Rate 9 L Blood Pressure 153/63 H Pulse Oximetry 96 Oxygen Delivery Method Room Air BMI result Body Mass Index 34.0 Const Other: Alert, well-appearing, appears older than stated age Orientation/consciousness: patient oriented x3 Resp Other: Nonlabored respiration Cardio Other: Normal peripheral perfusion Other: Normal external genitalia, the bilateral inguinal regions appear chafed, there is foul smelling white discharge noted from the vaginal canal, there are no discrete lesions, there was no evidence of cellulitis, folliculitis, Bartholin gland cyst or abscess. She is also having no palpable pain over the inguinal region, external genitalia or perineum Skin Other: Warm dry, raised, circular, mildly erythematous, scattered lesions, none of them coalesce, they are over her abdomen, upper extremities and lower extremities of varying size they are not pruritic they are not dry they are not vesicular Neuro General: patient oriented x3, no focal motor deficits and CN's II-XI intact bilaterally Psych Other: Cooperative Course Course Course Narrative: This is a rapid medical exam performed by Elisa Kelley NP: Additional HPI, ROS, PE not included below will be deferred to primary provider. Patient is a 53-year-old female presenting to the ED with complaint of rash to abdomen, arms as well as nausea. Noticed the rash last night, states it is not pruritic. Started Flagyl on Monday for BV, has had nausea since. Was seen at urgent care on 12/30 for a genital wound which she states was draining. States when she was called about results of BV, she was told that she should've been started on Amoxicillin for the wound, but was not. She is requesting a new pelvic exam today, states wound is still present. No difficulty breathing, LS CTA. Took benadryl last night, none today. Plan: will need pelvic exam Medical Decision Making Medical Decision Making MDM Narrative: 53-year-old female with a history of hypothyroidism presents with vaginitis. Patient states she was seen at urgent Care, she was found to have BV. She was placed on p.o. Flagyl. Patient developed a rash over her abdomen upper extremities and scattered lesions over the lower extremities. It is nonpainful, nonpruritic. Patient has been nauseous since she started the Flagyl. In addition, patient was told she had a ?bleeding wound?, inferior to her vaginal opening. She states a script for amoxicillin was sent to the pharmacy but she has yet to pick it up. She is requesting another exam, she is not sure that she has received appropriate treatment. Problem: Recent antibiotics, known vaginitis History per patient I have considered the following differential diagnoses: Drug reaction, Castellanos- Johnny syndrome, Bartholin gland cysts, cellulitis, folliculitis, abscess Plan: We will treat the BV with topical clindamycin, patient is in agreement. We will send with a Medrol taper for her drug reaction. She has already stopped using the Flagyl. There are no other lesions on exam, unclear what the provider saw at the clinic. There was no indication for labs or imaging at this time. Discharge Plan Discharge Clinical Impression: Bacterial vaginosis, Allergic drug reaction Patient Disposition: Home, Self-Care Instructions: Bacterial Vaginosis (ED), Antibiotic Medication Allergy (ED) Additional Instructions: We are going to treat the bacterial vaginosis with clindamycin gel. You use 1 applicator inserted into the vagina at bedtime, for 7 days. You also have a drug reaction from the Flagyl, do not take anymore Flagyl. Use the Medrol Dosepak as directed. There were no additional lesions noted on your exam, there was no bleeding there was no infection. You should also start using an [id number] probiotic that has coverage for genitourinary coverage. This will help repopulate your vaginal hannah. You can stay on the probiotic indefinitely. Follow up with your review consultant as needed. Prescriptions: New clindamycin phosphate 2 % cream 1 appful vaginal BEDTIME 7 Days Qty: 40 0RF Rx Instructions: for 3 days methylprednisolone [Medrol (Kris)] 4 mg tablets,dose pack 4 mg PO DAILY Qty: 1 0RF Rx Instructions: Take daily in the morning per package instructions. No Action trazodone 50 mg tablet 1 tab PO BEDTIME levothyroxine 150 mcg tablet 1 tab PO DAILY propranolol 20 mg tablet 1 tab PO DAILY oxycodone 5 mg tablet 5 mg PO Q6H PRN (Reason: pain) Qty: 14 0RF Print Language: Filipino
[2024-01-17 17:20] VITALS: BP 94/55; PULSE 92; RESP 18; O2SAT 96
[2024-01-17 17:55] VITALS: BP 94/55; PULSE 92; RESP 18; TEMP 37.2; O2SAT 96
== END 2024-01-17 17:55 | disposition home or self-care (01) ==
PROVIDERS: Emergency Provider Emergency Medicine; PCP Family Medicine
DX: N76.0 Acute vaginitis (principal); R21 Rash and other nonspecific skin eruption; T37.3X5A Adverse effect of other antiprotozoal drugs, initial encounter; Y92.9 Unspecified place or not applicable
CPT/HCPCS: 99282; 99283

== ENCOUNTER 2024-10-31 15:23 | Outpatient (AMB) | payer OTHER, SELFPAY ==
--- NOTE | 2024-10-31 15:30 | A.OFFVIS_ITS ---
Vital Signs 10/31/24 15:30 Height 5 ft 3 in Intake Visit Reasons: 6m migraine Allergies No Known Allergies (No Known Allergies*) Allergy (Verified 10/31/24 15:33) Medication List - Last Reconciled 10/31/24 by Vanessa Benavidez CNP [id number]-unphgvkkxeilk-owlf 50-325-40 mg 1 tab PO DAILY PRN clindamycin phosphate 2% 1 appful vaginal BEDTIME 7 days levothyroxine 1 tab PO DAILY methocarbamol 750 mg PO TID methylprednisolone (Medrol (Kris)) 4 mg PO DAILY oxycodone 5 mg PO Q6H PRN propranolol 20 mg PO BID rizatriptan 10 mg PO DAILY PRN trazodone 1 tab PO BEDTIME HPI Comments Details: 54-year-old woman with migraine headaches. She was here with new concern of balance difficulty and unsteadiness that has been ongoing for the last few months. She had one fall in 08/2024. She was working with PT and walking with cane, no further falls. Her PCP ordered brain MRI W&WO which she had done at [facility] in 09/2024 and had copy of report on her phone, results below. She has chronic low back pain managed with cortisone injection once a year, last around 04/2024. She gets some occasional numbness and tingling in feet, particularly when she is due for next injection. She has some occasional dizziness. She had a few migraines that were relieved with rizatriptan. [facility] Medical History (Updated 10/31/24 @ 15:44 by Vanessa Benavidez CNP) Paresthesia of skin Obesity Migraine without aura Insomnia Depression with anxiety Adult hypothyroidism Migraines Surgical History H/O thyroidectomy H/O: hysterectomy Social History Patient Tobacco Use Status: Current everyday Tobacco user Tobacco use type: Cigarette Cigarettes Per Day: 15 Years Smoked: 42 Review of Systems Const Denies chills, Denies daytime sleepiness, Reports difficulty sleeping, Denies fatigue, Denies fever(s), Denies frequent falls, Reports headache(s), Denies increased appetite, Denies poor appetite, Denies snoring, Denies weakness, Denies weight gain and Denies weight loss Eyes Denies loss of vision ENT Denies vertigo, Denies dizziness and Reports headache(s) Card Denies chest pain at rest, Denies chest pain with activity, Denies syncope, Denies leg edema and Denies palpitations Resp Denies snoring GI Denies constipation, Denies heartburn, Denies diarrhea and Denies nausea Denies urinary frequency, Denies urinary incontinence and Denies urinary urgency Musc Denies abnormal gait, Denies numbness and Denies tingling Skin/Breast Denies dry skin and Denies rash Neuro Denies abnormal gait, Denies vertigo, Denies dizziness, Denies syncope, Denies frequent falls, Reports headache(s), Denies lack of coordination, Denies loss of vision, Denies memory loss, Denies numbness, Denies restless legs, Denies seizure-like activity, Denies tingling, Denies paresthesias, Denies tremor(s) and Denies weakness Psych Denies anxiety, Denies depression, Denies auditory hallucinations, Denies memory loss, Denies visual hallucinations and Denies suicidal ideation Endo Denies fatigue and Denies palpitations Physical Exam Const Other: General Appearance:? normal, in no acute distress. Skin:? no rashes, no significant birthmarks. Heart:? S1, S2 normal, no murmurs. Lungs:? clear anteriorly and posteriorly. Extremities:? no edema. Psych:? alert, oriented, cognitive function intact, cooperative with exam. Neuro Other: Mental Status:?Normal attention, orientation, memory and affect.? Cranial Nerves:?Pupils are equal, round and reactive to light. External occular muscles are intact. Visual farrell are full. Face is symmetrical. Facial sensations are normal. Tongue is midline. Palate elevates symmetrically. Shoulder shrugging is normal. Hearing to bedside conversation is normal. Sensory Exam:?Impaired joint position sensation. Rhomberg slightly positive. Coordination:?No ataxia,?no titubation.? Gait Exam: With cane. Cerebellar Signs:?[id number]-cw-[id number] is okay. Extrapyramidal System:?No tremor, rigidity with normal facial expressions.? Pronator Drift:?Not present.? Involuntary Movements:?No tremors seen.? Speech:?Normal.? Results Reviewed Results Reviewed: MRI brain W&WO at [facility] in 09/2024: no evidence of recent infarction, intracranial hemorrhage, mass, or mass effect (reported) Assessment & Plan Assessment & Plan (1) Migraine without aura: Code(s): G43.009 - Migraine without aura, not intractable, without status migrainosus Category: Medical Qualifiers: Status migrainosus presence: without status migrainosus Intractability: not intractable Qualified Code(s): G43.009 - Migraine without aura, not intractable, without status migrainosus Plan: Continue propranolol 20mg 1 tablet twice a day. Continue rizatriptan 10mg 1 tablet as needed for migraine. Continue [id number] 50-325-40mg 1-2 tablets as needed for headache #10 for 30 days. She was advised to bring CD of MRI to next appointment. (2) Peripheral neuropathy: Code(s): G62.9 - Polyneuropathy, unspecified Category: Medical Qualifiers: Peripheral neuropathy type: polyneuropathy, unspecified Qualified Code(s): G62.9 - Polyneuropathy, unspecified Plan: NCV/EMG ordered. Continue working with PT, use cane. Plan Meds tried: Amitryptiline (worked but caused dry mouth), topiramate, venlafaxine, sumatriptan, butalbital, nurtec, rizatriptan Orders: Orders NE nerve conduction velocity Today G62.9 - Polyneuropathy, unspecified NE electromyogram (EMG) Today G62.9 - Polyneuropathy, unspecified Coding Level of Care Code Est Pt Level 4 (40116) Diagnoses Migraine without aura and without status migrainosus, not intractable G43.009 Status migrainosus presence: without status migrainosus Intractability: not intractable Peripheral polyneuropathy G62.9 Peripheral neuropathy type: polyneuropathy, unspecified
--- OUTSIDE RECORDS SUMMARY | 2024-10-31 16:21 | XMS_ITS | Clinical Summary ---
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 Active methocarbamoL (ROBAXIN) 750 mg tabletIndications :muscle spasm Take 1 tablet (750 mg total) by mouth if needed. Active fluocinolone acetonide oiL 0.01 % drops USE 2 DROPS INTO BOTH EARS 2X/DAY FOR 1 WEEK THEN USE NEEDED UP TO 2X/WK FOR IRRITATION/ITCHI NG Active butalbital-acetam inophen-caffeine (FIORICET, ESGIC) 50-325-40 mg per tablet TAKE 1 TABLET BY MOUTH ONCE DAILY NEEDED FOR PAIN 28 tablet Active multivitamin (MULTIPLE VITAMINS ORAL) Take by mouth daily. Active diclofenac (VOLTAREN) 75 mg EC tablet Take 1 tablet (75 mg total) by mouth 2 (two) times a day. 024 Active albuterol 2.5 mg /3 mL (0.083 %) nebulizer solutionIndicatio ns:Chest congestion,Mild intermittent asthma, unspecified whether complicated Take 3 mL (2.5 mg total) by nebulization every 4 (four) hours if needed for wheezing or shortness of breath. 150 mL 025 Active ammonium lactate (AMLACTIN) 12 % cream APPLY TO HANDS & FEET TWICE A DAY 025 Active loratadine (CLARITIN) 10 mg tabletIndications :Allergic rhinitis, unspecified seasonality, unspecified trigger Take 1 tablet (10 mg total) by mouth 1 (one) time each day. Take 1 Tablet by mouth daily. - Oral 90 each 1 025 2024 Active albuterol HFA (Ventolin HFA) 90 mcg/actuation inhalerIndication s:Centrilobular emphysema (CMS/HCC V24, CMS/HCC V28) Inhale 2 puffs by mouth every 6 (six) hours if needed for wheezing. 6.7 g 1 025 2025 Active levothyroxine (SYNTHROID, LEVOTHROID) 150 mcg tabletIndications :Postsurgical hypothyroidism levothyroxine 150 mcg on Mondays through Saturdays and 1/2 a tablet on Sundays only 90 tablet 025 Active lansoprazole (PREVACID) [address] capsule Take 1 capsule (30 mg total) by mouth 1 (one) time each day. Do not crush or chew. 90 each 025 2024 Active traZODone (DESYREL) 50 mg tabletIndications :Insomnia, unspecified TAKE 1 TABLET BY MOUTH EVERYDAY AT BEDTIME 90 tablet 1 025 Active traZODone (DESYREL) 50 mg tabletIndications :Insomnia, unspecified TAKE 1 TABLET BY MOUTH EVERYDAY AT BEDTIME 90 tablet 1 025 2024 Discontinued Active Problems Problem Noted Date Diagnosed Date Restrictive lung disease 10/06/2024 Vitamin D insufficiency 06/01/2024 Allergic rhinitis 05/29/2024 Assessment & Plan (05/29/2024 3:34 PM EDT): Poorly controlled. Start Nasacort twice daily and continue Claritin Orders: loratadine (CLARITIN) 10 mg tablet; Take 1 tablet (10 mg total) by mouth 1 (one) time each day. Take 1 Tablet by mouth daily. - Oral triamcinolone (NASACORT) 55 mcg nasal inhaler; Administer 1 spray into each nostril 2 (two) times a day. Menopausal hot flushes 05/29/2024 Assessment & Plan (05/29/2024 3:34 PM EDT): Willing to try paroxetine 10 mg daily which was sent. Counseled on possible side effects of the medication She is status post hysterectomy which was done in 2017 Orders: PARoxetine (PAXIL) 10 mg tablet; Take 1 tablet (10 mg total) by mouth 1 (one) time each day in the morning. Centrilobular emphysema (CMS/HCC V24, CMS/HCC V2 8) 05/29/2024 Assessment & Plan (09/23/2024 1:56 PM EDT): states she never started Anoro. Doesn't not have albuterol. Notes breathing is fine . She still smoked 1/2 PPD . States she plans to think about quitting around December . Advised to have albuterol on hand to use as needed Assessment & Plan (05/29/2024 3:34 PM EDT): Start Anoro daily. Continue albuterol as needed will update PFTs Orders: umeclidinium-vilanteroL (ANORO ELLIPTA) 62.5-25 mcg/actuation inhaler; Inhale 1 puff by mouth 1 (one) time each day. Pulmonary function testing: Spirometry, Spirometry with Bronchodilator albuterol HFA (Ventolin HFA) 90 mcg/actuation inhaler; Inhale 2 puffs by mouth every 6 (six) hours if needed for wheezing. Mild episode of recurrent ma matt depressive disorder (CMS/HCC V24) 05/29/2024 Assessment & Plan (09/23/2024 1:56 PM EDT): Continue weekly therapy Had side effects with paroxetine Assessment & Plan (05/29/2024 3:34 PM EDT): Start paxil Orders: PARoxetine (PAXIL) 10 mg tablet; Take 1 tablet (10 mg total) by mouth 1 (one) time each day in the morning. Hall's esophagus without dysplasia 05/29/2024 Gastroesophageal reflux disease without esophagi tis 05/29/2024 Insomnia 06/25/2022 Assessment & Plan (09/23/2024 1:56 PM EDT): Continue trazodone 50mg nightly Assessment & Plan (05/29/2024 3:34 PM EDT): Continue trazodone 50 mg nightly Prediabetes 05/24/2022 Assessment & Plan (05/29/2024 3:34 PM EDT): Due for updated A1c which is ordered Orders: Hemoglobin A1c; Future Abnormal facial hair 05/23/2022 Overview (01/10/2024): Last Assessment & Plan: Discussed with patient that facial hair growth can occur as a physiologic process following menopause, however I have ordered testosterone, DHEAS and 17 hydroxyprogesterone to rule out a pathologic process. Offered referral to dermatology, which was placed today. All questions answered. Obstructive sleep apnea 04/30/2021 Overview (01/10/2024): [facility] Polysomnogram: Date 04/15/2021; Wt 210#; BMI 37; SE 92%; SM 93%; REM 27%; RDI 5 (AHI 5), REM (RDI 16 - AHI 16), Central apneas 0; Obstructive apneas 3; Mixed apneas 0; hypopneas 30; RERAs 0; average oxygen saturation 89% (lowest 84% - with saturations <88% for 5% or more of study); PLMs 0. - Obstructive Sleep Apnea - mild overall and moderate in REM; mostly hypopneas; with sleep related hypoventilation by 2021 polysomnogram. Assessment & Plan (05/29/2024 3:34 PM EDT): With ongoing fatigue likely related to untreated sleep apnea and nocturnal hypoxemia. She is referred to sleep medicine Orders: Ambulatory referral to Sleep Medicine; Future Nocturnal hypoxemia 10/13/2020 Overview (01/10/2024): 09/2020 Home sleep study revealed nocturnal hypoxemia but not sleep apnea. Oxygen eric 80%. Assessment & Plan (05/29/2024 3:34 PM EDT): She needs CPAP /potentially nocturnal O2. Referred to sleep medicine Orders: Ambulatory referral to Sleep Medicine; Future Neuroforaminal stenosis of cervical spine 2019 Migraine with aura and witho ut status migrainosus, not intractable 01/08/2020 Overview (01/10/2024): Follows with neurology Dr. Frakn Assessment & Plan (05/29/2024 3:34 PM EDT): Continue follow-up with neurology. Continue propranolol 40 mg daily and Fioricet as needed Hyperlipidemia 10/23/2018 Overview (09/23/2024): ASCVD risk is 5.2% Assessment & Plan (09/23/2024 1:56 PM EDT): Assessment & Plan (05/29/2024 3:34 PM EDT): Will update lipid panel. If calculated ASCVD is greater than 7.5 percent, will recommend statin. Orders: Lipid panel with reflex to direct LDL; Future Obesity (BMI 30-39.9) 10/03/2017 Inflammatory arthritis 01/13/2016 Overview (01/10/2024): Bilatewral hand pain and swelling with slightly elevated marker of inflammation , negative serologies Smoker 10/14/2015 Assessment & Plan (05/29/2024 3:34 PM EDT): Cessation counseling provided Postsurgical hypothyroidism 2014 Assessment & Plan (05/29/2024 3:34 PM EDT): Continue levothyroxine. Will update TSH Orders: levothyroxine (SYNTHROID, LEVOTHROID) 150 mcg tablet; 1 tab daily and skip Monday Thyroid stimulating hormone with reflex to free t4 and free t3; Future S/P thyroidectomy 01/08/2014 Encounters Date Type Department Care Team Description 10/24/2024 5:30 PM EDT Treatment Outpatient Rehabilitation - [address] [phone] Davis Colindres, PT Gait instability (Primary Dx) 10/17/2024 1:30 PM EDT Evaluation Outpatient Rehabilitation - [address] [phone] Davis Colindres, PT Gait instability (Primary Dx); Fall, initial encounter 10/08/2024 2:06 PM EDT - 10/08/2024 11:59 PM EDT Hospital Encounter Radiology Department - [address] [phone] Gait instability; Fall, initial encounter Discharge Disposition: Home or Self Care 10/04/2024 8:07 AM EDT - 10/04/2024 11:59 PM EDT Hospital Encounter [facility] Pulmonary [address] [place] [phone] Discharge Disposition: Home or Self Care 09/27/2024 12:31 PM EDT - 09/27/2024 11:59 PM EDT Hospital Encounter Radiology [facility] - [address] [phone] Pain in both lower extremities Discharge Disposition: Home or Self Care 09/27/2024 9:20 AM EDT Office Visit Gastroenterology [facility] 175 [facility] [address] [phone] Karen Vasquez NP Hall's esophagus without dysplasia (Primary Dx); Tobacco abuse disorder 09/24/2024 Telephone Gastroenterology [facility] [address] [phone] Karen Vasquez NP 09/23/2024 3:18 PM EDT - 09/23/2024 11:59 PM EDT Hospital Encounter XRAY - [address] [phone] Right leg pain Discharge Disposition: Home or Self Care 09/23/2024 1:00 PM EDT Office Visit Adult Medicine [address] [phone] Shellie Neal MD Gait instability (Primary Dx); Fall, initial encounter; Mixed hyperlipidemia; Primary insomnia; Pain in both lower extremities; Abrasion of left lower extremity, initial encounter; Abrasion of right lower extremity, initial encounter; Right leg pain; Contusion of left lower extremity, initial encounter; Centrilobular emphysema (CMS/HCC V24, CMS/HCC V28); Mild episode of recurrent major depressive disorder (CMS/HCC V24) 09/20/2024 Nurse Triage Adult Medicine [address] [phone] Shellie Neal MD 08/23/2024 8:19 AM EDT - 08/23/2024 11:59 PM EDT Hospital Encounter [facility] CT Scan [address] [place] [address] Multiple pulmonary nodules Discharge Disposition: Home or Self Care from Last 3 Months Immunizations Name Administration Dates Next Due Hepatitis B Pediatric (Enger ix B; Recombivax HB) to less than 20 yo 04/19/2011,10/18/2010,09/09/2010 Influenza Quadravalent, MDCK , 0.5ml, preservative free (Flucelvax) 6mo and older 03/18/2020,02/15/2019 Influenza Quadrivalent, 0.5m l, preservative free (Fluarix; FluLaval; Fluzone) ages 6mo and older (Afluria) 3yo and older 11/30/2022,12/01/2021,12/18/2020,12/15 Influenza Quadrivalent, with preservative (Fluzone; Afluria) 6mo and older 01/09/2017 Influenza trivalent, 0.5mL, preservative free (Fluarix; FluLaval; Fluzone) ages 6mo and older (Afluria) 3 years and older 12/07/2023 Influenza trivalent, with pr eservative (Fluzone; Afluria) 6mo and older 01/14/2016 Influenza, Unspecified 12/02/2021,01/14/2016 MMR, measles mumps and rubel la Live (Priorix; M-M-R II) 12mo and older 07/05/2013,09/09/2010 Moderna (age 6mo & older) Bi valent, COVID-19, 0.5 mL or 0.25 mL dosage 02/04/2022 Moderna Covid-19 Bivalent, O riginal + Ba.1 (Non-US Tradename Spikevax Bivalent) 02/04/2022 PPD Test 03/18/2020 Pfizer (ages 12 & older) Biv alent, COVID-19 02/04/2022 Pneumococcal conjugate 20 va lent (Prevnar 20, PCV 20) 2mo and older 05/29/2024 Pneumococcal polysaccharide 23 valent (Pneumovax 23) 2yo and older 02/09/2016 Tdap Tetanus diptheria acell ular pertussis (Boostrix; Adacel) 7yo and older 07/05/2013 Zoster recombinant (Shingrix ) 19yo and older 07/15/2022,12/31/2021 Surgical History Surgery Date Site/Laterality Comments WISDOM TOOTH EXTRACTION PROCEDURE: HISTORICAL WISDOM TEETH EXTRACTION TUBAL LIGATION PROCEDURE: HISTORICAL TUBAL LIGATION; COMMENT: coils in luis tubes THYROIDECTOMY PROCEDURE: HISTORICAL TOTAL THYROIDECTOMY HYSTERECTOMY 2016 PROCEDURE: HISTORICAL HYSTERECTOMY CHOLECYSTECTOMY PROCEDURE: [place] LAPAROSCOPY SURG CHOLECYSTECTOMY Medical History Medical History Date Comments Hyperthyroidism DX:Hyperthyroidi sm Insomnia DX:Insomnia History of suicide attempt DX:Hi story of suicide attempt S/P thyroidectomy 01/08/2014 DX:S/P thyroid ectomy Smoker 10/14/2015 DX:Smoker Acute cholecystitis 12/04/2020 DX:Acute cho lecystitis; COMMENT: S/p cholecystectomy Migraine headache Disc disorder Chronic bronchitis (CMS/HCC V24, CMS/HCC V28) GERD (gastroesophageal reflu x disease) Anxiety Depression PTSD (post-traumatic stress disorder) Arthritis Joint pain Motion sickness Family History Medical History Relation Name Comments No Known Problems Father Breast cancer Maternal Grandmother dx'd age 29 Other: pancreatic cancer Mother Thyroid disease Sister 1 Colon cancer Neg Hx Ovarian cancer Neg Hx Relation Name Status Comments Father Alive Maternal Grandmother dx'd age 29 Mother Sister 1 Sister 2 Alive Social History Tobacco Use Types Packs/Day Years Used Date Smoking Tobacco: Every Day Cigarettes 0.5 36.7 Started: 02/28/1988 Smokeless Tobacco: Never Tobacco Cessation:Ready to Q uit: Not Asked; Counseling Given: Not Answered Alcohol Use Standard Drinks/Week Comments Yes 0 (1 standard drink = 0.6 oz pur e alcohol) SOCIAL Interpersonal Safety Answer Date Record ed Physical Abuse 01/05/2024 Verbal Abuse 01/05/2024 Comments No Sex and Gender Information Value Date Recorded Sex Assigned at Female 04/09/2024 9:47 AM EST Legal Sex Female 9:56 PM EST Gender Identity Female 10/18/2024 7:41 AM EDT Sexual Orientation Straight 04/09/2024 9: 47 AM EST Obstetrics History Last Filed Vital Signs Vital Sign Reading Time Taken Comments Blood Pressure 122/76 09/27/2024 9:27 AM EDT Pulse 78 09/27/2024 9:27 AM EDT Temperature 35.8 C (96.4 F) 09/23/2024 1:20 PM EDT Respiratory Rate 16 09/23/2024 1:20 PM EDT Oxygen Saturation 96% 09/27/2024 9:27 AM EDT Inhaled Oxygen Concentration - - Weight 90.4 kg (199 lb 3.2 oz) 09/27/2024 9:27 A M EDT Height 160 cm (5' 3 ) 09/27/2024 9:27 AM EDT Body Mass Index 35.29 09/27/2024 9:27 AM EDT Plan of Treatment Upcoming Encounters Date Type Department Care Team (Late st Contact Info) Description 11/01/2024 9:30 AM EDT Treatment Outpatient Rehabilitation - [address] [phone] Davis Colindres PT 11/04/2024 3:30 PM EDT Office Visit Orthopedic Surgery - [place] [address] [phone] Brandon Cobian, DPM [address] [phone] 11/07/2024 5:30 PM EDT Treatment Outpatient [address] [phone] Davis Colindres, PT 11/08/2024 9:00 AM EDT Office Visit [address] [phone] Hali Lozano PA [address] [place] [phone] 11/11/2024 4:00 PM EDT Treatment Outpatient [address] [phone] Yelitza Davies, KNOCKER OFF 11/13/2024 4:00 PM EDT Treatment Outpatient [address] [phone] Yelitza Davies, KNOCKER OFF 11/18/2024 3:30 PM EDT Treatment Outpatient [facility] - [address] [phone] Davis Colindres, PT 11/20/2024 3:30 PM EDT Treatment Outpatient [facility] - [address] [phone] Yelitza Davies, KNOCKER OFF 11/25/2024 3:30 PM EDT Treatment Outpatient [facility] - [address] [phone] Yelitza Davies, KNOCKER OFF 11/27/2024 3:30 PM EDT Treatment Outpatient [facility] - [address] [phone] Yelitza Davies, KNOCKER OFF 12/02/2024 3:30 PM EDT Treatment Outpatient Rehabilitation - [address] [phone] Yelitza Davies, KNOCKER OFF 12/05/2024 5:00 PM EDT Treatment Outpatient Rehabilitation [address] [phone] Davis Colindres, PT 04/11/2025 3:00 PM EST Office Visit [facility] - [address] [phone] Shellie Neal MD [address] [place], [place] 10/03/2025 9:20 AM EDT Office Visit Gastroenterology - [place] [address] [facility] 175 [facility] [address] [place] [phone] Karen Vasquez, COAL TRAMMER [address] [place] [phone] Health Maintenance Due Date Last Done Comments Social Influencers of Health Screening 02/05/2022 DTaP,Tdap,and Td Vaccines (2 - Td or Tdap) 07/06/2023 07/05/2013 Depression Screening 02/28/2024 COVID-19 Vaccine ( season) 2024 01/11/2023, 02/04/2022, 02/04/2022, Additional history exists Influenza Vaccine (#1) 2024 4, 11/30/2022, 12/02/2021, Additional history exists Breast Cancer Screening 11/30/2025 12/01/19 24, 12/01/2023, 11/15/2022, Additional history exists Cholesterol Screening (Lipid Panel) 05/31/2029 05/31/2024, 08/19/2023, 08/18/2023 Colorectal Cancer Screening: Colonoscopy 05/06/2032 05/06/2022 Hepatitis B Vaccines Discontinued 04/19/2011, 10/18/2010, 09/09/2010 MMR Vaccines Aged Out 07/05/2013, 09/09/2010 No lo nger eligible based on patient's age to complete this topic HIV Screening Completed 01/28/2022 Hepatitis C Screening Completed 01/28/2022 Zoster Vaccines Completed 07/15/2022, 12/31/2021 Lung Cancer Screening (Low Dose CT) Discontinued 02/09/2024, 01/28/2023, 01/21/2022 Pneumococcal Vaccine: 50+ Years Completed 05/29/2024, 02/09/2016 HIB Vaccines Aged Out No longer eligi ble based on patient's age to complete this topic HPV Vaccines Aged Out No longer eligi ble based on patient's age to complete this topic Hepatitis A Vaccines Aged Out No long er eligible based on patient's age to complete this topic IPV Vaccines Aged Out No longer eligi ble based on patient's age to complete this topic Meningococcal ACWY Vaccine Aged Out N o longer eligible based on patient's age to complete this topic Meningococcal B Vaccine Aged Out No l onger eligible based on patient's age to complete this topic RSV Immunization Patients Under 20 months Aged Out No longer eligible based on patient's age to complete this topic Varicella Vaccines Aged Out No longer eligible based on patient's age to complete this topic Goals Goal Patient Goal Type Associated Problems Recent Progress Patient-Stated? Author STG's 6 visits General Yes Davis Colindres, PT Note: Pt will report medial R ankle pain of no more than 4/10 on VAS at end of her work day. Pt will demonstrate a normal gait pattern w/ or w/out AD at liberty w/in her home. Pt will reciprocally ascend stairs w/ use of SC and min A of UE and hand railing. Pt will report returning to walking 50% or her normal distance 2 or more days/week w/out increased R leg/ankle pain. Pt is Independent and compliant with initial HEP. LTG's 12 visits General Yes Davis Colindres, PT Note: Pt will report medial R ankle pain of no more than 2/10 on VAS at end of her work day. Pt will demonstrate a normal gait pattern w/ or w/out AD at liberty on all surfaces. Pt will reciprocally negotiate stairs w/ A of UE and hand railing for safety only. Pt will report returning to walking 75% or her normal distance 4 or more days/week w/out increased R leg/ankle pain. Pt will be Independent and compliant with final HEP. Procedures Procedure Name Priority Date/Time Associated Diagnosis Comments MR BRAIN WO AND W CONTRAST Routine 10/08/2024 3:07 PM EDT Gait instability Fall, initial encounter HC SPIROMETRY BRONCHODILATION RESPONSIVENESS PRE/POST BRONCHODILATOR ADMINISTRATION Routine 10/04/2024 9:02 AM EDT Centrilobular emphysema (CMS/HCC V24, CMS/HCC V28) VAS US DUPLEX LOWER EXT VENOUS BILAT STAT 09/27/2024 1:27 PM EDT Pain in both lower extremities XR TIBIA FIBULA 2 VIEWS RIGHT Routine 09/23/2024 3:28 PM EDT Right leg pain THYROID STIMULATING HORMONE WITH REFLEX TO FREE T4 AND FREE T3 Routine 09/20/2024 9:14 AM EDT Postsurgical hypothyroidism CT CHEST WO CONTRAST (LUNG-RADS F/U) Routine 08/23/2024 8:31 AM EDT Multiple pulmonary nodules LIPID PANEL WITH REFLEX TO DIRECT LDL Routine 05/31/2024 9:52 AM EDT Mixed hyperlipidemia CT LUNG SCREENING Routine 02/09/2024 9:1 2 AM EST Encounter for screening for malignant neoplasm of respiratory organs Nicotine dependence, cigarettes, uncomplicated SCREENING MAMMOGRAPHY BI 2-VIEW BREAST INC CAD Routine 12/01/2023 3:33 PM EDT Encounter for screening mammogram for malignant neoplasm of breast HM COLONOSCOPY Routine 05/06/2022 HEPATITIS C SCREENING Routine 01/28/2022 HIV SCREENING Routine 01/28/2022 from Last 3 Months or Most Recently Relevant to Health Maintenance Results * MR Brain wo and w Contrast (10/08/2024 3:07 PM EDT) Anatomical Region Laterality Modality Head and Neck Magnetic Resonan ce 10/08/2024 5:04 PM EDT Impressions 10/08/2024 7:05 PM EDT No evidence of a recent infarction, intracranial hemorrhage, mass, or mass effect. POS - [id number] -------- FINAL REPORT -------- Dictated By: Nancy Licea Dictated Date: 10/08/2024 17:04 ET Assigned Physician: Nancy Licea Reviewed and Electronically Signed By: Nancy Licea Signed Date: 10/08/2024 19:05 ET Workstation ID: [id number] Transcribed By: Self Edit Transcribed Date: 10/08/2024 17:30 ET Narrative 10/08/2024 7:05 PM EDT EXAM: BRAIN MRI HISTORY: Gait imbalance with frequent falls. Migraines. COMPARISON: 07/04/2020 CORRELATION: None TECHNIQUE: Exam performed on a 1.5 Emely high-field MRI scanner. Multiplanar imaging performed without and with contrast. 15 cc of Dotarem administered intravenously. FINDINGS: No restricted diffusion to indicate a recent infarct. No evidence of intracranial hemorrhage. No significant signal abnormality in the brain parenchyma. No evidence of an enhancing mass, mass effect, or midline shift. No hydrocephalus. Basal cisterns are patent. No cerebellar ectopia. Pituitary gland is not enlarged. Normal vascular flow-voids appear present in the major intracranial arteries at the skull base. Minimal mucosal thickening in the ethmoid and left sphenoid sinuses. No significant fluid signal within mastoid air cells. Procedure Note Nancy Licea MD - 10/08/2024 EXAM: BRAIN MRI HISTORY: Gait imbalance with frequent falls. Migraines. COMPARISON: 07/04/2020 CORRELATION: None TECHNIQUE: Exam performed on a 1.5 Emely high-field MRI scanner.Multiplanar imaging performed without and with contrast. 15 cc of Dotaremadministered intravenously. FINDINGS: No restricted diffusion to indicate a recent infarct. No evidence ofintracranial hemorrhage. No significant signal abnormality in the brainparenchyma. No evidence of an enhancing mass, mass effect, or midline shift. Nohydrocephalus. Basal cisterns are patent. No cerebellar ectopia.Pituitary gland is not enlarged. Normal vascular flow-voids appearpresent in the major intracranial arteries at the skull base. Minimal mucosal thickening in the ethmoid and left sphenoid sinuses. Nosignificant fluid signal within mastoid air cells. IMPRESSION: No evidence of a recent infarction, intracranial hemorrhage, mass, or masseffect. POS - [id number] -------- FINAL REPORT -------- Dictated By: Nancy Licea Dictated Date: 10/08/2024 17:04 ET Assigned Physician: Nancy Licea Reviewed and Electronically Signed By: Nancy Licea Signed Date: 10/08/2024 19:05 ET Workstation ID: [id number] Transcribed By: Self Edit Transcribed Date: 10/08/2024 17:30 ET us Shellie Neal MD IMG MRI PROCEDUR ES Final Result * Pulmonary function testing: Spirometry, Spirometry with Bronchodilator (10/04/2024 9:02 AM EDT) Narrative Scarlet Cano MD - 10/05/2024 2:44 PM EDT Table formatting from the original result was not included. Images from the original result were not included. [facility] [address] [place] [id number] Pulmonary Functions Report Date of service: 10/04/24 Patient Name: Socorro Garcia Date of : 1970 Age: 54 y.o. Gender: female Ordering Provider: Shellie Neal MD Diagnosis listed on Order: Centrilobular emphysema ([facility] V24, [facility] V28) Reason for Exam: Order Questions Answers Reason for Exam: chronic cough, emphsema, smoker Which PFTs would you like to perform? Spirometry,Spirometry with Bronchodilator Pulmonary Test Finding: Spirometry/ Flow Volume Loop: FEV1 is 1.94 at 80 % of predicted., FVC is 76 % of predicted. , FEV1/FVC ratio is 85 % of predicted. Spirometry Post Bronchodilator Response: No bronchodilator response. Lung Volumes: TLC is 72 % of predicted. RV is 81 % of predicted. RV/TLC is is 114 % of predicted. Diffusion Capacity: DLCO is 59 % of predicted (Adjusted DLCO is 60 %). DLCO/VA is 94 % of predicted. Quality of Study: Meets ATS criteria for acceptability and repeatability Refer to scanned report for all additional results and graphs. Interpretation/Impression: No obstruction, mild restriction. And mild decrease in diffusion when adjusted. Findings consistent mild restrictive lung disease us Shellie Neal MD PFT ORDERABLES Final Result * Vascular US duplex lower extremity venous bilateral (09/27/2024 1:27 PM EDT) Anatomical Region Laterality Modality Vascular, Abdomen Ultrasound 09/27/2024 2:55 PM EDT Impressions 09/27/2024 2:58 PM EDT No ultrasound evidence of deep venous thrombus in either the left or right leg from the upper groins throughout the calves. Subcutaneous hematoma in the right anterior herndon area. -------- FINAL REPORT -------- Dictated By: Marcy Iverson Dictated Date: 09/27/2024 14:55 ET Assigned Physician: Marcy Iverson Reviewed and Electronically Signed By: Marcy Iverson Signed Date: 09/27/2024 14:58 ET Workstation ID: [id number] Transcribed By: Self Edit Transcribed Date: 09/27/2024 14:55 ET Narrative 09/27/2024 2:58 PM EDT VAS US DUPLEX LOWER EXT VENOUS BILAT LOWER EXTREMITY VENOUS ULTRASOUND, BILATERAL HISTORY: Bilateral lower extremities.. TECHNIQUE: Venous ultrasound of the left and right legs was performed from the upper groins throughout the calves. FINDINGS: No echogenic thrombus was seen. The deep venous system throughout the left and right legs was compressible. There was normal waveform respiratory phasicity. There was normal augmentation of color flow and duplex Doppler wave form throughout the deep venous system during compression at the ankles. No fluid or cysts are seen in either popliteal fossa. Evaluation of palpable abnormality is a right anterior herndon revealed irregular shaped subcutaneous fluid collection measuring 3 x 0.4 x 2.4 cm most likely representing subcutaneous hematoma. Procedure Note Marcy Iverson MD - 09/27/2024 VAS US DUPLEX LOWER EXT VENOUS BILAT LOWER EXTREMITY VENOUS ULTRASOUND, BILATERAL HISTORY: Bilateral lower extremities.. TECHNIQUE: Venous ultrasound of the left and right legs was performed fromthe upper groins throughout the calves. FINDINGS: No echogenic thrombus was seen. The deep venous systemthroughout the left and right legs was compressible. There was normalwaveform respiratory phasicity. There was normal augmentation of colorflow and duplex Doppler wave form throughout the deep venous system duringcompression at the ankles. No fluid or cysts are seen in either poplitealfossa. Evaluation of palpable abnormality is a right anterior herndon revealedirregular shaped subcutaneous fluid collection measuring 3 x 0.4 x 2.4 cmmost likely representing subcutaneous hematoma. IMPRESSION: No ultrasound evidence of deep venous thrombus in either the left or rightleg from the upper groins throughout the calves. Subcutaneous hematoma inthe right anterior herndon area. -------- FINAL REPORT -------- Dictated By: Marcy Iverson Dictated Date: 09/27/2024 14:55 ET Assigned Physician: Marcy Iverson Reviewed and Electronically Signed By: Marcy Iverson Signed Date: 09/27/2024 14:58 ET Workstation ID: [id number] Transcribed By: Self Edit Transcribed Date: 09/27/2024 14:55 ET Shellie Neal MD CV VASCULAR PROC EDURES Final Result * XR Tibia Fibula 2 Views Right (09/23/2024 3:28 PM EDT) Anatomical Region Laterality Modality Lower Extremities, Lower Leg Right Rad iographic Imaging 09/23/2024 8:24 PM EDT Impressions 09/23/2024 8:26 PM EDT No acute fracture detected. POS - [id number] -------- FINAL REPORT -------- Dictated By: Nancy Licea Dictated Date: 09/23/2024 20:24 ET Assigned Physician: Nancy Licea Reviewed and Electronically Signed By: Nnacy Licea Signed Date: 09/23/2024 20:26 ET Workstation ID: [id number] Transcribed By: Self Edit Transcribed Date: 09/23/2024 20:24 ET Narrative 09/23/2024 8:26 PM EDT EXAM: Right tibia and fibula x-ray HISTORY: Right leg pain after a fall 2 weeks ago. COMPARISON: None FINDINGS: AP and lateral views performed. No acute fracture or malalignment detected. No destructive bone lesion. Small posterior and plantar calcaneal spurs. Procedure Note Nancy Licea MD - 09/23/2024 EXAM: Right tibia and fibula x-ray HISTORY: Right leg pain after a fall 2 weeks ago. COMPARISON: None FINDINGS: AP and lateral views performed. No acute fracture or malalignment detected. No destructive bone lesion.Small posterior and plantar calcaneal spurs. IMPRESSION: No acute fracture detected. POS - [id number] -------- FINAL REPORT -------- Dictated By: Nancy Licea Dictated Date: 09/23/2024 20:24 ET Assigned Physician: Nancy Licea Reviewed and Electronically Signed By: Nancy Licea Signed Date: 09/23/2024 20:26 ET Workstation ID: [id number] Transcribed By: Self Edit Transcribed Date: 09/23/2024 20:24 ET Shellie Neal MD IMG XR PROCEDURE S Final Result * Thyroid stimulating hormone with reflex to free t4 and free t3 (09/20/2024 9:14 AM EDT) TSH 2.78 0.40 - 4.00 mcIU/mL LAB CHEMISTRY METHOD 09/20/2024 1:41 PM EDT [facility] Blood Venous blood specimen / Unknown Venipuncture / Unknown 09/20/2024 9:14 AM EDT 09/20/2024 9:14 AM EDT Shellie Neal MD LAB BLOOD ORDERA BLES Final Result [facility] [address] [place] [address], * CT Chest wo Contrast (Lung-RADS F/U) (08/23/2024 8:31 AM EDT) Anatomical Region Laterality Modality Body Computed Tomogra phy 08/26/2024 9:40 AM EDT Impressions 08/26/2024 9:50 AM EDT Impression: Resolution of the multiple new pulmonary nodules noted on the previous study, consistent with a benign process. No suspicious developing nodule is seen. Lung-RADS Category: Lung-RADS 1: No nodules or definitely benign nodules. Continue annual screening with Low Dose Chest CT in 12 months. [employer] ([id number]) -------- FINAL REPORT -------- Dictated By: Kat Moya Dictated Date: 08/26/2024 09:40 ET Assigned Physician: Kat Moya Reviewed and Electronically Signed By: Kat Moya Signed Date: 08/26/2024 09:50 ET Workstation ID: [id number] Transcribed By: Self Edit Transcribed Date: 08/26/2024 09:40 ET Narrative 08/26/2024 9:50 AM EDT History: 53 year-old current smoker, asymptomatic, for short-term follow-up of a lung RADS 0 lesion. Comparison: 02/09/24, 01/27/23 Technique: Helical volumetric imaging of the thorax was performed, using low- dose technique, without IV contrast. DLP: 158.31 mGy/cm CTDIvol: 4.83 mGy [employer] VCT Iterative reconstruction technique Findings: Lungs and Airways: The trachea and central bronchial tree remain patent. Mild centrilobular emphysema is again noted. The multiple new pulmonary nodules reported on the previous study have resolved. No suspicious developing nodule is seen. Pleura: No pleural or pericardial effusions are seen. Base of neck, mediastinum and heart: The heart remains normal in size. Minimal atherosclerotic vascular calcification is seen in the aortic arch. Thyroidectomy sequela are again noted. No developing thoracic lymphadenopathy is seen. Soft tissues: The overlying soft tissues are unremarkable. Abdomen: This study was performed without contrast and with lower than standard dose. These factors reduce the sensitivity for detection of small lesions in the upper abdomen. The hepatic attenuation is diffusely diminished, consistent with fatty infiltration. Cholecystectomy sequela are noted. A healing or healed right rib fracture (anterolateral sixth) is new from the previous study. Procedure Note Kat Moya MD - 08/26/2024 History: 53 year-old current smoker, asymptomatic, for qmtmu-[id number]-mt of a lung RADS 0 lesion. Comparison: 02/09/24, 01/27/23 Technique: Helical volumetric imaging of the thorax was performed, usinglow-dose technique, without IV contrast. DLP: 158.31 mGy/cm CTDIvol: 4.83 mGy [employer] Iterative reconstruction technique Findings: Lungs and Airways: The trachea and central bronchial tree remain patent.Mild centrilobular emphysema is again noted. The multiple new pulmonary nodules reported on the previous study haveresolved. No suspicious developing nodule is seen. Pleura: No pleural or pericardial effusions are seen. Base of neck, mediastinum and heart: The heart remains normal in size.Minimal atherosclerotic vascular calcification is seen in the aortic arch.Thyroidectomy sequela are again noted. No developing thoraciclymphadenopathy is seen. Soft tissues: The overlying soft tissues are unremarkable. Abdomen: This study was performed without contrast and with lower thanstandard dose. These factors reduce the sensitivity for detection of smalllesions in the upper abdomen. The hepatic attenuation is diffuselydiminished, consistent with fatty infiltration. Cholecystectomy sequelaare noted. A healing or healed right rib fracture (anterolateral sixth) is new fromthe previous study. IMPRESSION: Impression: Resolution of the multiple new pulmonary nodules noted on the previousstudy, consistent with a benign process. No suspicious developing nodule is seen. Lung-RADS Category: Lung-RADS 1: No nodules or definitely benign nodules.Continue annual screening with Low Dose Chest CT in 12 months. [employer] [place] ([id number]) -------- FINAL REPORT -------- Dictated By: Kat Moya Dictated Date: 08/26/2024 09:40 ET Assigned Physician: Kat Moya Reviewed and Electronically Signed By: Kat Moya Signed Date: 08/26/2024 09:50 ET Workstation ID: [id number] Transcribed By: Self Edit Transcribed Date: 08/26/2024 09:40 ET Cherie SMITH IMG CT PROCEDURES Final Resul t * (ABNORMAL) Lipid panel with reflex to direct LDL (05/31/2024 9:52 AM EDT) Cholesterol 223(H) 0 - 200 mg/dL LAB CHEMISTRY METHOD 05/31/2024 1:59 PM EDT [facility] Triglycerides 227(H) 0 - 150 mg/dL LAB CHEMISTRY METHOD 05/31/2024 1:59 PM EDT [facility] HDL 46 >=40 mg/dL LAB CHEMISTRY METHOD 05/31/2024 1:59 PM EDT [facility] LDL Calculated 132(H) 0 - 100 mg/dL LAB CHEMISTRY METHOD 05/31/2024 1:59 PM EDT [facility] VLDL Cholesterol [place] 45.4 mg/dL LAB CHEMISTRY METHOD 05/31/2024 1:59 PM EDT [facility] Non HDL Chol. (LDL+VLDL) 177(H) <145 mg/dL LAB CHEMISTRY METHOD 05/31/2024 1:59 PM EDT [facility] Chol/HDL Ratio 4.8(H) 0.0 - 4.4 LAB CHEMISTRY METHOD 05/31/2024 1:59 PM EDT [facility] Blood Venous blood specimen / Unknown Venipuncture / Unknown 05/31/2024 9:52 AM EDT 05/31/2024 9:52 AM EDT us Shellie Neal MD LAB BLOOD ORDERA BLES Final Result [facility] [address] [place] [address], [place] [phone] * CT Lung Screening (02/09/2024 9:12 AM EST) Anatomical Region Laterality Modality Chest Computed Tomogra phy 02/12/2024 9:01 AM EST Impressions 02/12/2024 9:44 AM EST Impression: Multiple (greater than 6) new, predominantly juxtapleural nodules, possibly infectious/inflammatory, for which a follow-up low-dose CT is recommended in 1 to 3 months. Lung-RADS Category: Lung-RADS 0: Incomplete screening. Recommend repeat Low Dose Chest CT. Recommendations: Follow-up low-dose noncontrast CT in 1 - 3 months. -------- FINAL REPORT -------- Dictated By: Kat Moya Dictated Date: 02/12/2024 09:01 ET Assigned Physician: Kat Moya Reviewed and Electronically Signed By: Kat Moya Signed Date: 02/12/2024 09:44 ET Workstation ID: [id number] Transcribed By: Self Edit Transcribed Date: 02/12/2024 09:01 ET Narrative 02/12/2024 9:44 AM EST History: 53 year-old 27 pack-year current smoker, asymptomatic, for lung cancer screening. Comparison: 01/27/23 Technique: Helical volumetric imaging of the thorax was performed, using low- dose technique, without IV contrast. DLP: 162.24 mGy/cm CTDIvol: 4.83 mGy [employer] VCT Iterative reconstruction technique Findings: Lungs and Airways: The trachea and central bronchial tree remain patent. An accessory cardiac bronchus is noted and supplies a very small volume of aerated lung, an anatomic variant. Diffuse bronchial wall thickening is again seen bilaterally, consistent with bronchitis in this setting. Mild centrilobular and paraseptal emphysema are again noted. Several (greater than 6) new solid, noncalcified, predominantly juxtapleural nodules have developed, most of which are in the posterior aspects of the lower lobes, possibly infectious/inflammatory. These measure up to approximately 5 mm in mean diameter (image 142 series 3, for example). Few sub-4 mm solid, noncalcified nonpleural-based nodules are also new (image 171 series 3, for example). Pleura: No pleural or pericardial effusions are seen. Base of neck, mediastinum and heart: The heart remains normal in size. Minimal atherosclerotic calcification is seen in the aortic arch. No developing thoracic adenopathy is noted. Thyroidectomy sequelae are again seen. Soft tissues: The overlying soft tissues are unremarkable. Abdomen: This study was performed without contrast and with lower than standard dose. These factors reduce the sensitivity for detection of small lesions in the upper abdomen. Cholecystectomy clips are noted. Procedure Note Kat Moya MD - 02/12/2024 History: 53 year-old 27 pack-year current smoker, asymptomatic, for lungcancer screening. Comparison: 01/27/23 Technique: Helical volumetric imaging of the thorax was performed, usinglow-dose technique, without IV contrast. DLP: 162.24 mGy/cm CTDIvol: 4.83 mGy [employer] VCT Iterative reconstruction technique Findings: Lungs and Airways: The trachea and central bronchial tree remain patent.An accessory cardiac bronchus is noted and supplies a very small volume ofaerated lung, an anatomic variant. Diffuse bronchial wall thickening isagain seen bilaterally, consistent with bronchitis in this setting. Mildcentrilobular and paraseptal emphysema are again noted. Several (greater than 6) new solid, noncalcified, predominantlyjuxtapleural nodules have developed, most of which are in the posterioraspects of the lower lobes, possibly infectious/inflammatory. Thesemeasure up to approximately 5 mm in mean diameter (image 142 series 3, forexample). Few sub-4 mm solid, noncalcified nonpleural-based nodules arealso new (image 171 series 3, for example). Pleura: No pleural or pericardial effusions are seen. Base of neck, mediastinum and heart: The heart remains normal in size.Minimal atherosclerotic calcification is seen in the aortic arch. Nodeveloping thoracic adenopathy is noted. Thyroidectomy sequelae are againseen. Soft tissues: The overlying soft tissues are unremarkable. Abdomen: This study was performed without contrast and with lower thanstandard dose. These factors reduce the sensitivity for detection of smalllesions in the upper abdomen. Cholecystectomy clips are noted. IMPRESSION: Impression: Multiple (greater than 6) new, predominantly juxtapleural nodules,possibly infectious/inflammatory, for which a follow-up low-dose CT isrecommended in 1 to 3 months. Lung-RADS Category: Lung-RADS 0: Incomplete screening. Recommend repeatLow Dose Chest CT. Recommendations: Follow-up low-dose noncontrast CT in 1 - 3 months. -------- FINAL REPORT -------- Dictated By: Kat Moya Dictated Date: 02/12/2024 09:01 ET Assigned Physician: Kat Moya Reviewed and Electronically Signed By: Kat Moya Signed Date: 02/12/2024 09:44 ET Workstation ID: [id number] Transcribed By: Self Edit Transcribed Date: 02/12/2024 09:01 ET us Alonzo Wolfe MD IMG CT PROCEDURES Final Result * SCREENING MAMMOGRAPHY BI 2-VIEW BREAST INC CAD (12/01/2023 3:33 PM EDT) Anatomical Region Laterality Modality Radiographic Berhta ging 11/15/2022 6:43 PM EDT Narrative 12/04/2023 1:23 PM EDT This is a summary report. The complete report is available in the patient's medical record. If you cannot access the medical record, please contact the sending organization for a detailed fax or copy. Exam: Screening mammogram Findings: Digital bilateral full-field screening mammography is performed with tomosynthesis and interpreted with the aid of computer-aided detection. Comparison is made with 11/15/2022 and as far back as 08/09/2016. Breast parenchyma is composed of scattered fibroglandular densities. No new suspicious mass, architectural distortion, or suspicious calcifications. Impression: No mammographic evidence of malignancy. BI-RADS 1 - negative [facility] [address] [address] Procedure Note Nancy Licea MD - 12/26/2023 This is a summary report. The complete report is available in thepatient's medical record. If you cannot access the medical record, pleasecontact the sending organization for a detailed fax or copy. Exam: Screening mammogram Findings: Digital bilateral full-field screening mammography is performedwith tomosynthesis and interpreted with the aid of computer-aideddetection. Comparison is made with 11/15/2022 and as far back as08/09/2016. Breast parenchyma is composed of scattered fibroglandular densities. Nonew suspicious mass, architectural distortion, or suspiciouscalcifications. Impression: No mammographic evidence of malignancy. BI-RADS 1 - negative [facility] [address], [place] [id number] Shellie Neal MD IMG XR PROCEDURE S Final Result * Colonoscopy (05/06/2022) Colonoscopy no interpretation , abstracted Anatomical Region Laterality Modality Other Historical Provider HEALTH MAINTENANCE Final Result * HIV Screening (01/28/2022) HIV Screening abstracted Historical Provider HEALTH MAINTENANCE Final Result * Hepatitis C Screening (01/28/2022) Hepatitis C Screening abstracted Historical Provider HEALTH MAINTENANCE Final Result from Last 3 Months or Most Recently Relevant to Health Maintenance Insurance [facility] Care Teams Multiple Spindle Screw Machine Operator Relationship Specialty Start Date End Date Shellie Neal MD [address] [place], [place] PCP - General Internal Medicine 09/06/21
== END 2024-10-31 15:51 | disposition home or self-care (01) ==
LOC: HO.HSM 15:23
PROVIDERS: PCP Family Medicine; Visit Provider Registered Nurse
DX: G43.009 Migraine without aura, not intractable, without status migrainosus (principal); G62.9 Polyneuropathy, unspecified
CPT/HCPCS: 99214

== ENCOUNTER → 2024-10-31 15:23 | Outpatient (BNVA) | payer OTHER, SELFPAY | PROVIDERS: PCP Family Medicine; Visit Provider Registered Nurse | DX: G43.009 Migraine without aura, not intractable, without status migrainosus (principal); G62.9 Polyneuropathy, unspecified; Z79.899 Other long term (current) drug therapy | CPT/HCPCS: 99212 ==

== ENCOUNTER 2024-11-13 15:19 | Outpatient (REF) | payer OTHER, SELFPAY ==
--- NOTE | 2024-11-13 15:22 | EMG_ITS ---
Chief complaint: fall Reason for referral: Polyneuropathy Referred by:?Dr Frank Procedure done: Bilateral lower extremities NCS/EMG Bilateral tibial and peroneal motor studies were performed, bilateral superficial peroneal, sural, and median lateral mixed plantars sensory studies were performed tibial H reflexes were obtained an EMG needle examination was performed. Right superficial peroneal sensory amplitude was reduced and similarly median and lateral mixed plantars sensory amplitudes were significantly diminished. Otherwise no significant abnormality was noted. Impression: 1. 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 Right superficial peroneal axonal sensory neuropathy 3. No evidence of generalized neuropathy or radiculopathy MTDD
== END 2024-11-13 15:20 | disposition home or self-care (01) ==
LOC: HO.NEURO 15:19
PROVIDERS: PCP Family Medicine; Visit Provider Psychiatry & Neurology Neurology
DX: G62.9 Polyneuropathy, unspecified (principal)
CPT/HCPCS: 95886; 95913

== ENCOUNTER → 2024-11-13 15:22 | Outpatient (BNV) | payer OTHER, SELFPAY | PROVIDERS: PCP Family Medicine; Visit Provider Psychiatry & Neurology Neurology | DX: G62.89 Other specified polyneuropathies (principal) | CPT/HCPCS: 95886; 95913 ==

== ENCOUNTER 2024-11-22 09:45 | Outpatient (AMB) | payer OTHER, SELFPAY ==
--- OUTSIDE RECORDS SUMMARY | 2024-11-18 15:30 | XMS_ITS | Encounter Summary ---
Author Organization [employer] Address [address] [place] [address] Care Team Providers Care Business Analyst Manager Name Role Phone Shellie Neal MD Primary Care [facility] Reason for Visit * Consultation (Routine) - Authorized Specialty Diagnoses / Procedures Referred By Contjd huber Referred To Contact Physical Therapy Diagnoses Gait instability Fall, initial encounter Shellie Neal MD [address] [place] [address] Phone: tel: fax: Referral ID Status Reason Start Date Expiration Date Visits Requested Visits Authorized [id number] Authorized Specialty Services Required 09/23/2024 09/23/2025 21 21 Encounter Details Date Type Department Care Team ([facility] st Contact Info) Description 11/18/2024 3:30 PM EDT Treatment Outpatient Rehabilitation - [address] [phone] Davis Colindres, PT Gait instability (Primary Dx) Social History Tobacco Use Types Packs/Day Years Used Date Smoking Tobacco: Every Day Cigarettes 0.5 36.7 Started: 02/28/1988 Smokeless Tobacco: Never Alcohol Use Standard Drinks/Week Comments Yes 0 [...] Orientation Straight 04/09/2024 9: 47 AM EST documented as of this encounter Progress Notes * Davis Colindres PT - 11/18/2024 3:30 PM EDT [facility] - Outpatient PHYSICAL THERAPY DAILY TREATMENT NOTE - OP Date: 11/18/2024 Visit Number: 7 Patient Name: Socorro Augustin : 1970 Age: 54 y.o. Gender: female Diagnosis: ICD-10-CM ICD-9-CM 1. Gait instability R26.81 781.2 Date of Onset/Surgery: 09/23/2024 Referring Provider: Shellie Neal Insurance: Payor: [employer] PLAN / Plan: [employer] [facility] / Product Type: *No Product type* / Patient Identified by: Davis Colindres PT Language: Urdu Medications: Current Outpatient Medications on File Prior to Visit Medication Sig Dispense Refill albuterol 2.5 mg /3 mL (0.083 %) nebulizer solution Take 3 mL (2.5 mg total) by nebulization every 4 (four) hours if needed for wheezing or shortness of breath. 150 mL 0 albuterol HFA (Ventolin HFA) 90 mcg/actuation inhaler Inhale 2 puffs by mouth every 6 (six) hours if needed for wheezing. 6.7 g 1 ammonium lactate (AMLACTIN) 12 % cream APPLY TO HANDS & FEET TWICE A DAY psmytysibl-gtghlilwsbhpq-uyewocsm (FIORICET, ESGIC) 50-325-40 mg per tablet TAKE 1 TABLET BY MOUTH ONCE DAILY NEEDED FOR PAIN 28 tablet 0 diclofenac (VOLTAREN) 75 mg EC tablet Take 1 tablet (75 mg total) by mouth 2 (two) times a day. fluocinolone acetonide oiL 0.01 % drops USE 2 DROPS INTO BOTH EARS 2X/DAY FOR 1 WEEK THEN USE NEEDED UP TO 2X/WK FOR IRRITATION/ITCHING lansoprazole (PREVACID) [address] capsule Take 1 capsule (30 mg total) by mouth 1 (one) time each day. Do not crush or chew. 90 each 0 levothyroxine (SYNTHROID, LEVOTHROID) 150 mcg tablet levothyroxine 150 mcg on Mondays through Saturdays and 1/2 a tablet on Sundays only 90 tablet 0 [START ON 11/26/2024] loratadine (CLARITIN) 10 mg tablet Take 1 tablet (10 mg total) by mouth 1 (one) time each day. 90 each 1 methocarbamoL (ROBAXIN) 750 mg tablet Take 1 tablet (750 mg total) by mouth if needed. multivitamin (MULTIPLE VITAMINS ORAL) Take by mouth daily. propranoloL (INDERAL) 20 mg tablet Take 2 tablets (40 mg total) by mouth 1 (one) time each day. traZODone (DESYREL) 50 mg tablet TAKE 1 TABLET BY MOUTH EVERYDAY AT BEDTIME 90 tablet 1 No current facility-administered medications on file prior to visit. Allergies: is allergic to metronidazole. Precautions: Fall risk: No Patient/Caregiver Goals: Resolve ankle pain. SUBJECTIVE Subjective Report: I had a nerve conduction test on Monday. My low back is very sore /10. My R ankle pain /10. I am having a hard time walking because of the pain. Chart Reviewed: Yes Pain: R ankle pain= 7/10 on [facility], Low back 8/10. OBJECTIVE TREATMENT INTERVENTION: Pt instructed to increase icing to 2x/day. Pt agreed. Discussed IAMT to include dry needling. Written information issued, pt to read the info at home andlet us know if she'd like to proceed. Manual Therapy: Pt prone lying for STM/DFM ro R medial arch x 10 mins Held this visit...Trigger point to R Gastroc belly in prone. Held this visit...Pt supine for gentle distraction to talocrural joint NuStep w/ Dynadisc R LE @ L3 x 4 minutes. True stretch w/ wedge for dynamic rocking into lunges/ DF x 3 reps w/ 10 rocks. Slant board x 4 reps w/ 20 sec hold. Pt seated for CP x 10 mins to plantar aspect of R foot. HEP: DF w/ PTB, Eversion w/ GTB, ASSESSMENT/Response to Treatment: Good, Pt first few steps after sitting are mildly antalgic. Pt still using AD. Pt may benefit from trial of IAMT to include DN w/ ES. Pt to read information and let us know next visit if she'd like to proceed w/ DN. Patient Education: Education provided: Yes, DF strengthening w/ PTB. Education Provided To: Patient utilizing Explanation mode(s) of education Response to Education: Verbal Understanding PLAN POC Development/Review: No Change in the Plan of Care; Participants: Patient Total Treatment Time: 40 Modalities: Therapeutic procedures: Manual Therapy: 13 minutes. Therex: 17 minutes Documentation completed by Davis Colindres PT documented in this encounter Plan of Treatment Upcoming Encounters Date Type Department Care Team (Late st Contact Info) Description 11/25/2024 3:30 PM EDT Treatment Outpatient [address] [phone] Yelitza Davies, SENIOR SYSTEMS ANALYST 11/27/2024 3:30 PM EDT Treatment Outpatient [address] [phone] Yelitza Davies, SENIOR SYSTEMS ANALYST 12/02/2024 3:30 PM EDT Treatment Outpatient [address] [phone] Yelitza Davies, SENIOR SYSTEMS ANALYST 12/05/2024 5:00 PM EDT Treatment Outpatient Rehabilitation - [address] [phone] Davis Colindres, PT 12/16/2024 3:15 PM EDT Office Visit Orthopedic Surgery [facility] [address] [phone] Brandon Cobian DPJerald [address] [phone] 04/11/2025 3:00 PM EST Office Visit Adult Medicine [address] [phone] Shellie Neal MD [address] [place], [place] 10/03/2025 9:20 AM EDT Office Visit Gastroenterology - [place] 175 [facility] 175 [facility] [address] [place] [phone] Karen Vasquez NP 175 [facility] [address] [place] [address] documented as of this encounter Goals Goal Patient Goal Type Associated Problems Recent Progress Patient-Stated? Author STG's 6 visits General Yes Davis Colindres PT Note: Pt will report medial R [...] be Independent and compliant with final HEP. documented as of this encounter Visit Diagnoses Diagnosis Gait instability- Primary Abnormality of gait documented in this encounter Care Teams Business Analyst Manager Relationship Specialty Start Date End Date Shellie Neal MD [address] [place], [place] PCP - General Internal Medicine 09/06/21 documented as of this encounter
--- OUTSIDE RECORDS SUMMARY | 2024-11-20 15:30 | XMS_ITS | Encounter Summary ---
Author Organization [employer] Address [address] [place] [address] Care Team Providers Care Safety Consultant Name Role Phone Shellie Neal MD Primary Care [facility] Reason for Visit * Consultation (Routine) - Authorized Specialty Diagnoses / Procedures Referred By Contjd huber Referred To Contact Physical Therapy Diagnoses Gait instability Fall, initial encounter Shellie Neal MD [address] [place] [address] Phone: tel: fax: Referral ID Status Reason Start Date Expiration Date Visits Requested Visits Authorized [id number] Authorized Specialty Services Required 09/23/2024 09/23/2025 21 21 Encounter Details Date Type Department Care Team ([facility] st Contact Info) Description 11/20/2024 3:30 PM EDT Treatment Outpatient Rehabilitation - [address] [phone] Yelitza Davies, BLOWER INSULATOR Gait instability (Primary Dx); Fall, initial encounter Social History Tobacco Use Types Packs/Day Years [...] as of this encounter Progress Notes * Yelitza Davies PTA - 11/20/2024 3:30 PM EDT [facility] - Outpatient PHYSICAL THERAPY DAILY TREATMENT NOTE - OP Date: 11/20/2024 Visit Number: 8 Patient Name: Socorro Augustin : 1970 Age: 54 y.o. Gender: female Diagnosis: ICD-10-CM ICD-9-CM 1. Gait instability R26.81 781.2 2. Fall, initial encounter W19.XXXA E888.9 Date of Onset/Surgery: 09/23/2024 Referring Provider: Shellie Neal* Insurance: Payor: [id number] PLAN / Plan: [employer] / Product Type: *No Product type* / Patient Identified by: Yelitza Davies PTA Language: Greek Medications: Current Outpatient Medications on File Prior [...] TO HANDS & FEET TWICE A DAY wcyxypyowx-pnamfcaaefvpn-eubmvlvy (FIORICET, ESGIC) 50-325-40 mg per tablet TAKE [...] No Patient/Caregiver Goals: Resolve ankle pain. SUBJECTIVE had a n Subjective Report: I am feeling it in the center of my Right heel. I am not sure I feel okay with the Dry Needling. Chart Reviewed: Yes Pain: R ankle pain= 7/10 on [facility], Low back stiffness. , OBJECTIVE TREATMENT INTERVENTION: Manual Therapy: Pt prone lying for STM/DFM ro R medial arch x 10 mins Trigger point to R Gastroc belly in prone. Pt supine for gentle distraction to talocrural joint KT taping w/ pieces for Plantar Fascia technique, 25% pull from toe to heel. Therex: NuStep w/ Dynadisc R LE @ L3 x 4 minutes. True stretch w/ wedge for dynamic rocking into lunges/ DF x 3 reps w/ 10 rocks. Slant board x 4 reps w/ 20 sec hold. Seated arch rolling to medial arch to heel w/ ball x 2 minutes. R foot marble cone picker ( 20 marbles) x 1 round. HEP: DF w/ PTB, Eversion w/ GTB, Gastroc stretching w/ stretching strap. ASSESSMENT/Response to Treatment: Good, Decreased Antalgic GT as pt departed clinic. Low back pain no longer present. Low back stiffness reported. Patient Education: Education provided: Yes, Education Provided To: Patient utilizing Explanation mode(s) of education Response to Education: Verbal Understanding PLAN POC Development/Review: No Change in the Plan of Care; Participants: Patient Total Treatment Time: 40 Modalities: Therapeutic procedures: Manual Therapy: 12 minutes. Therex: 18 minutes Documentation completed by Yelitza Davies PTA documented in this encounter Plan of Treatment Upcoming Encounters Date Type Department Care Team (Late st Contact Info) Description 11/25/2024 3:30 PM EDT Treatment Outpatient [address] [phone] Yelitza Davies, BLOWER INSULATOR 11/27/2024 3:30 PM EDT Treatment Outpatient [address] [phone] Yelitza Davies, BLOWER INSULATOR 12/02/2024 3:30 PM EDT Treatment Outpatient [address] [phone] Yelitza Davies, BLOWER INSULATOR 12/05/2024 5:00 PM EDT Treatment Outpatient [address] [phone] Davis Colindres, PT 12/16/2024 3:15 PM EDT Office Visit Orthopedic Surgery [place] [address] [phone] Brandon Cobian, DPM [address] [phone] 04/11/2025 3:00 PM EST Office Visit Adult Medicine [address] [phone] Shellie Neal MD [address] [place] [address] 10/03/2025 9:20 AM EDT Office Visit Gastroenterology - [place] [address] [place] 175 [facility] [address] [place] [phone] Karen Vasquez NP 175 [facility] [address] [place] [address] documented as of this encounter Goals Goal [...] Diagnosis Gait instability- Primary Abnormality of gait Fall, initial encounter documented in this encounter Care Teams Safety Consultant Relationship Specialty Start Date End Date Shellie Neal MD [address] [facility], [place] PCP - General Internal Medicine 09/06/21 documented as of this encounter
--- NOTE | 2024-11-22 10:02 | A.OFFVIS_ITS ---
Intake Visit Reasons: Results Allergies No Known Allergies (No Known Allergies*) Allergy (Verified 11/22/24 10:08) Medication List - Last Reconciled 11/22/24 by Vanessa Benavidez CNP grvyhhbkmw-uabhoxgcgzfno-zkdz 50-325-40 mg 1 tab PO DAILY PRN clindamycin phosphate 2% 1 appful vaginal BEDTIME 7 days levothyroxine 1 tab PO DAILY methocarbamol 750 mg PO TID methylprednisolone (Medrol (Kris)) 4 mg PO DAILY oxycodone 5 mg PO Q6H PRN propranolol 20 mg PO BID rizatriptan 10 mg PO DAILY PRN trazodone 1 tab PO BEDTIME HPI Comments Details: 54-year-old woman with migraine headaches and more recently, unsteadiness with numbness and tingling in feet that has been ongoing for few months. She was here for test results. She was doing okay. She has been working with PT twice a week. Walking with cane, no falls. She was having some sharp, shooting pains in feet, R > L, mostly to heel and arch of foot. Sleep was so-so. Migraines were okay, using rizatriptan as needed which helps. [facility] Medical History (Updated 11/22/24 @ 10:13 by Vanessa Benavidez CNP) Paresthesia of skin Obesity Migraine without aura Insomnia Depression with anxiety Adult hypothyroidism Migraines Surgical History H/O thyroidectomy H/O: hysterectomy Social History Patient Tobacco Use Status: Current everyday Tobacco user Tobacco use type: Cigarette Cigarettes Per Day: 15 Years Smoked: 42 Review of Systems Const Denies chills, Denies daytime sleepiness, Reports difficulty sleeping, Denies fatigue, Denies fever(s), Denies frequent falls, Reports headache(s), Denies increased appetite, Denies poor appetite, Denies snoring, Denies weakness, Denies weight gain and Denies weight loss Eyes Denies loss of vision ENT Denies vertigo, Denies dizziness and Reports headache(s) Card Denies chest pain at rest, Denies chest pain with activity, Denies syncope, Denies leg edema and Denies palpitations Resp Denies snoring GI Denies constipation, Denies heartburn, Denies diarrhea and Denies nausea Denies urinary frequency, Denies urinary incontinence and Denies urinary urgency Musc Denies abnormal gait, Reports numbness and Reports tingling Skin/Breast Denies dry skin and Denies rash Neuro Denies abnormal gait, Denies vertigo, Denies dizziness, Denies syncope, Denies frequent falls, Reports headache(s), Denies lack of coordination, Denies loss of vision, Denies memory loss, Reports numbness, Denies restless legs, Denies seizure-like activity, Reports tingling, Denies paresthesias, Denies tremor(s) and Denies weakness Psych Denies anxiety, Denies depression, Denies auditory hallucinations, Denies memory loss, Denies visual hallucinations and Denies suicidal ideation Endo Denies fatigue and Denies palpitations Physical Exam Const Other: General Appearance:? normal, in no acute distress. Skin:? no rashes, no significant birthmarks. Heart:? S1, S2 normal, no murmurs. Lungs:? clear anteriorly and posteriorly. Extremities:? no edema. Psych:? alert, oriented, cognitive function intact, cooperative with exam. Neuro Other: Mental Status:?Normal attention, orientation, memory and affect.? Cranial Nerves:?Pupils are equal, round and reactive to light. External occular muscles are intact. Visual farrell are full. Face is symmetrical. Facial sensations are normal. Tongue is midline. Palate elevates symmetrically. Shoulder shrugging is normal. Hearing to bedside conversation is normal. Sensory Exam:?Impaired joint position sensation. Rhomberg slightly positive. Coordination:?No ataxia,?no titubation.? Gait Exam: With cane. Cerebellar Signs:?Xfoobs-sb-etbw is okay. Extrapyramidal System:?No tremor, rigidity with normal facial expressions.? Pronator Drift:?Not present.? Involuntary Movements:?No tremors seen.? Speech:?Normal.? Results Reviewed Results Reviewed: [address] [address] EMG / Nerve Conduction Report Signed Patient: Socorro Augustin MR#: [id number] : 1970 Acct:[id number] Age/Sex: 54 / F ADM Date: 11/13/24 Loc: HO.NEURO Attending Dr: Keiko Frank MD Ordering Physician: Vanessa Benavidez CNP Date of Service: 11/13/24 Procedure(s): NE electromyogram (EMG); NE nerve conduction velocity Accession Number(s): [id number]; [id number] cc: Vanessa Benavidez CNP~ Reason for Exam: G62.9 - Polyneuropathy, unspecified Chief complaint: fall Reason for referral: Polyneuropathy Referred by:?Dr Frank Procedure done: Bilateral lower extremities NCS/EMG Bilateral tibial and peroneal motor studies were performed, bilateral superficial peroneal, sural, and median lateral mixed plantars sensory studies were performed tibial H reflexes were obtained an EMG needle examination was performed. Right superficial peroneal sensory amplitude was reduced and similarly median and lateral mixed plantars sensory amplitudes were significantly diminished. Otherwise no significant abnormality was noted. Impression: 1. 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 Right superficial peroneal axonal sensory neuropathy 3. No evidence of generalized neuropathy or radiculopathy -- MRI brain W&WO at [place] in 09/2024: no evidence of recent infarction, intracranial hemorrhage, mass, or mass effect (reported) Assessment & Plan Assessment & Plan (1) Migraine without aura: Code(s): G43.009 - Migraine without aura, not intractable, without status migrainosus Category: Medical Qualifiers: Status migrainosus presence: without status migrainosus Intractability: not intractable Qualified Code(s): G43.009 - Migraine without aura, not intractable, without status migrainosus Plan: Continue propranolol 20mg 1 tablet twice a day. Continue rizatriptan 10mg 1 tablet as needed for migraine. Continue oxgdshocfo-FXBW-wviz 50-325-40mg 1-2 tablets as needed for headache #10 for 30 days. (2) Tarsal tunnel syndrome, bilateral: Code(s): G57.53 - Tarsal tunnel syndrome, bilateral lower limbs Category: Medical Plan: NCV/EMG results reviewed. She was educated on this condition and its treatment. Start gabapentin 300mg 1 capsule at bedtime, use/side effects reviewed. (3) Peroneal neuropathy: Code(s): G57.30 - Lesion of lateral popliteal nerve, unspecified lower limb Category: Medical Qualifiers: Laterality: right Qualified Code(s): G57.31 - Lesion of lateral popliteal nerve, right lower limb Plan Meds tried: Amitryptiline (worked but caused dry mouth), topiramate, venlafaxine, sumatriptan, butalbital, nurtec, rizatriptan Medications: New gabapentin 300 mg PO BEDTIME 30 caps 2RF 30 days Coding Level of Care Code Est Pt Level 4 (83790) Diagnoses Migraine without aura and without status migrainosus, not intractable G43.009 Status migrainosus presence: without status migrainosus Intractability: not intractable Tarsal tunnel syndrome, bilateral G57.53 Neuropathy of right peroneal nerve G57.31 Laterality: right
--- OUTSIDE RECORDS SUMMARY | 2024-11-22 10:47 | XMS_ITS | Clinical Summary ---
Author Organization 175 [facility] Address [address] [place] [address] Phone Care Team Providers Care Cafeteria Aide Name Role Phone Shellie Neal MD Primary [...] ONCE DAILY NEEDED FOR PAIN 28 tablet 01/09/20 24 Active multivitamin (MULTIPLE VITAMINS ORAL) Take by mouth daily. Active diclofenac (VOLTAREN) 75 mg EC tablet Take 1 tablet (75 mg total) by mouth 2 (two) times a day. 01/12/20 24 Active albuterol 2.5 mg /3 mL (0.083 %) nebulizer solutionIndicatio ns:Chest congestion,Mild intermittent asthma, unspecified whether complicated Take 3 mL (2.5 mg total) by nebulization every 4 (four) hours if needed for wheezing or shortness of breath. 150 mL 03/19/19 25 Active ammonium lactate (AMLACTIN) 12 % cream APPLY TO HANDS & FEET TWICE A DAY 03/01/19 25 Active albuterol HFA (Ventolin HFA) 90 mcg/actuation inhalerIndication s:Centrilobular emphysema (CMS/HCC V24, CMS/HCC V28) Inhale 2 puffs by mouth every 6 (six) hours if needed for wheezing. 6.7 g 1 05/30/19 25 026 Active levothyroxine (SYNTHROID, LEVOTHROID) 150 mcg tabletIndications :Postsurgical hypothyroidism levothyroxine 150 mcg on Mondays through Saturdays and 1/2 a tablet on Sundays only 90 tablet 09/21/19 25 Active lansoprazole (PREVACID) [address] capsule Take 1 capsule (30 mg total) by mouth 1 (one) time each day. Do not crush or chew. 90 each 09/25/19 25 025 Active traZODone (DESYREL) 50 mg tabletIndications :Insomnia, unspecified TAKE 1 TABLET BY MOUTH EVERYDAY AT BEDTIME 90 tablet 1 10/08/19 25 Active loratadine (CLARITIN) 10 mg tabletIndications :Allergic rhinitis, unspecified seasonality, unspecified trigger Take 1 tablet (10 mg total) by mouth 1 (one) time each day. 90 each 1 11/27/19 25 026 Active loratadine (CLARITIN) 10 mg tabletIndications :Allergic rhinitis, unspecified seasonality, unspecified trigger Take 1 tablet (10 mg total) by mouth 1 (one) time each day. Take 1 Tablet by mouth daily. - Oral 90 each 1 05/30/19 25 025 Discontin ued(Reord er) Active Problems Problem Noted Date Diagnosed Date [...] each day in the morning. Centrilobular emphysema (CMS/[facility] V24, CMS/[facility] V2 8) 05/29/2024 Assessment & Plan (09/23/2024 [...] answered. Obstructive sleep apnea 04/30/2021 Overview (01/10/2024): [facility] Polysomnogram: Date 04/15/2021; Wt 210#; [...] 01/08/2020 Overview (01/10/2024): Follows with neurology Dr. Frank Assessment & Plan (05/29/2024 3:34 PM EDT): [...] Encounters Date Type Department Care Team Description 11/20/2024 3:30 PM EDT Treatment Outpatient [address] [phone] Yelitza Davies, COACH MECHANIC Gait instability (Primary Dx); Fall, initial encounter 11/18/2024 3:30 PM EDT Treatment Outpatient [address] [phone] Davis Colindres, PT Gait instability (Primary Dx) 11/15/2024 8:30 AM EDT Treatment Outpatient [address] [phone] Yelitza Davies, COACH MECHANIC Gait instability (Primary Dx); Fall, initial encounter 11/11/2024 4:00 PM EDT Treatment Outpatient [address] [phone] Yelitza Davies, COACH MECHANIC Gait instability (Primary Dx); Fall, initial encounter 11/08/2024 9:00 AM EDT Office Visit Adult Medicine [address] [phone] Hali Lozano PA Postsurgical hypothyroidism (Primary Dx); Mixed hyperlipidemia; Prediabetes; Centrilobular emphysema (CMS/HCC V24, CMS/HCC V28); Insomnia, unspecified type; Migraine with aura and without status migrainosus, not intractable; Gastroesophageal reflux disease without esophagitis; Mild episode of recurrent major depressive disorder (CMS/HCC V24); Allergic rhinitis, unspecified seasonality, unspecified trigger; Vitamin D insufficiency 11/07/2024 5:30 PM EDT Treatment Outpatient [address] [phone] Davis Colindres, PT Gait instability (Primary Dx) 11/04/2024 3:30 PM EDT Office Visit Orthopedic Surgery [facility] 250 [address] [facility] [address] [place] [phone] Brandon Cobian, DPM Tendonitis, Achilles, right (Primary Dx); Tendonitis, Achilles, left; Plantar fascial fibromatosis; Equinus contracture of ankle 11/01/2024 9:30 AM EDT Treatment Outpatient Rehabilitation - [address] [phone] Davis Colindres, PT Gait instability (Primary Dx) 10/24/2024 5:30 PM EDT Treatment Outpatient Rehabilitation - [address] [phone] Davis Colindres, PT Gait instability (Primary Dx) 10/17/2024 1:30 PM EDT Evaluation Outpatient Rehabilitation - [address] [phone] Davis Colindres, PT Gait instability (Primary Dx); Fall, initial encounter 10/08/2024 2:06 PM EDT - 10/08/2024 11:59 PM EDT Hospital Encounter Radiology Department - [address] [phone] Gait instability; Fall, initial encounter Discharge Disposition: Home or Self Care 10/04/2024 8:07 AM EDT - 10/04/2024 11:59 PM EDT Hospital Encounter [facility] Pulmonary [address] [place] [phone] Discharge Disposition: Home or Self Care 09/27/2024 12:31 PM EDT - 09/27/2024 11:59 PM EDT Hospital Encounter Radiology Department - [address] [phone] Pain in both lower extremities Discharge Disposition: Home or Self Care 09/27/2024 9:20 AM EDT Office Visit Gastroenterology - [place] 175 [facility] 175 [facility] [address] [place] [phone] Karen Vasquez NP Hall's esophagus without dysplasia (Primary Dx); Tobacco abuse disorder 09/24/2024 Telephone Gastroenterology - [place] 175 [facility] 175 [facility] [address] [place] [address] Karen Vasquez NP 09/23/2024 3:18 PM EDT - 09/23/2024 11:59 PM EDT Hospital Encounter [address] [phone] Right leg pain Discharge Disposition: Home or Self Care 09/23/2024 1:00 PM EDT Office Visit Adult Medicine [address] [phone] Shellie Neal MD Gait instability (Primary Dx); Fall, initial encounter; Mixed hyperlipidemia; Primary insomnia; Pain in both lower extremities; Abrasion of left lower extremity, initial encounter; Abrasion of right lower extremity, initial encounter; Right leg pain; Contusion of left lower extremity, initial encounter; Centrilobular emphysema (CMS/HCC V24, CMS/HCC V28); Mild episode of recurrent major depressive disorder (CMS/HCC V24) 09/20/2024 Nurse Triage Adult [address] [phone] Shellie Neal MD 08/23/2024 8:19 AM EDT - 08/23/2024 11:59 PM EDT Hospital Encounter [facility] CT Scan [address] [place] [address] Multiple pulmonary nodules Discharge Disposition: [...] ular pertussis (Boostrix; Adacel) 7yo and older 11/08/2024,07/05/2013 Zoster recombinant (Shingrix ) 19yo and older 07/15/2022,12/31/2021 Surgical History Surgery Date Site/Laterality Comments WISDOM TOOTH EXTRACTION PROCEDURE: HISTORICAL WISDOM TEETH EXTRACTION TUBAL LIGATION PROCEDURE: HISTORICAL TUBAL LIGATION; COMMENT: coils in luis tubes THYROIDECTOMY PROCEDURE: HISTORICAL TOTAL THYROIDECTOMY HYSTERECTOMY 2016 PROCEDURE: HISTORICAL HYSTERECTOMY CHOLECYSTECTOMY PROCEDURE: [place] LAPAROSCOPY SURG CHOLECYSTECTOMY Medical History Medical History Date Comments Hyperthyroidism DX:Hyperthyroidi sm Insomnia DX:Insomnia History of suicide attempt DX:Hi story of suicide attempt S/P thyroidectomy 01/08/2014 DX:S/P thyroid ectomy Smoker 10/14/2015 DX:Smoker Acute cholecystitis 12/04/2020 DX:Acute cho lecystitis; COMMENT: S/p cholecystectomy Migraine headache Disc disorder Chronic bronchitis ([facility]/HCC V24, CMS/HCC V28) GERD (gastroesophageal reflu x [...] Sign Reading Time Taken Comments Blood Pressure 108/69 11/08/2024 8:58 AM EDT Pulse 71 11/08/2024 8:58 AM EDT Temperature 36.2 C (97.2 F) 11/08/2024 8:58 AM EDT Respiratory Rate 12 11/08/2024 8:58 AM EDT Oxygen Saturation 92% 11/08/2024 8:58 AM EDT Inhaled Oxygen Concentration - - Weight 89.8 kg (198 lb) 11/08/2024 8:58 AM EDT Height 160 cm (5' 3 ) 11/08/2024 8:58 AM EDT Body Mass Index 35.07 11/08/2024 8:58 AM EDT Plan of Treatment Upcoming Encounters Date Type Department Care Team (Late st Contact Info) Description 11/25/2024 3:30 PM EDT Treatment Outpatient Rehabilitation [address] [phone] Yelitza Davies, COACH MECHANIC 11/27/2024 3:30 PM EDT Treatment Outpatient [address] [phone] Yelitza Davies, COACH MECHANIC 12/02/2024 3:30 PM EDT Treatment Outpatient [address] [phone] Yelitza Davies, COACH MECHANIC 12/05/2024 5:00 PM EDT Treatment Outpatient [address] [phone] Davis Colindres, PT 12/16/2024 3:15 PM EDT Office Visit Orthopedic Surgery [facility] [address] [phone] Brandon Cobian, DPM [address] 04/11/2025 3:00 PM EST Office Visit Adult Medicine [address] [phone] Shellie Neal MD [address] [place], [place] 10/03/2025 9:20 AM EDT Office Visit Gastroenterology [facility] [address] [phone] Karen Vasquez NP [address] [address] Health Maintenance Due Date Last Done Comments Social Influencers of Health Screening 02/05/2022 Depression Screening 02/28/2024 COVID-19 Vaccine ( season) 2024 01/11/2023, 02/04/2022, 02/04/2022, Additional history exists Influenza Vaccine (#1) 2024 4, 11/30/2022, 12/02/2021, Additional history exists Breast Cancer Screening 11/30/2025 12/01/19 24, 12/01/2023, 11/15/2022, Additional history exists Cholesterol Screening (Lipid Panel) 05/31/2029 05/31/2024, 08/19/2023, 08/18/2023 Colorectal Cancer Screening: Colonoscopy 05/06/2032 05/06/2022 DTaP,Tdap,and Td Vaccines (3 - Td or Tdap) 11/08/2034 11/08/2024, 07/05/2013 RSV Immunization Adult Patients (1 - 1-dose 75+ series) 2045 Hepatitis B Vaccines Discontinued 04/19/2011, 10/18/2010, 09/09/2010 [...] screening mammogram for malignant neoplasm of breast COLONOSCOPY Routine 05/06/2022 HEPATITIS C SCREENING Routine [...] hemorrhage, mass, or mass effect. POS - [id number] -------- FINAL REPORT -------- Dictated By: Nancy Licea Dictated Date: 10/08/2024 17:04 ET Assigned Physician: Nancy Licea Reviewed and Electronically Signed By: Nancy Licea Signed Date: 10/08/2024 19:05 ET Workstation ID: [id number] Transcribed By: Self Edit Transcribed Date: 10/08/2024 [...] intracranial hemorrhage, mass, or masseffect. POS - [id number] -------- FINAL REPORT -------- Dictated By: Nancy Licea Dictated Date: 10/08/2024 17:04 ET Assigned Physician: Nancy Licea Reviewed and Electronically Signed By: Nancy Licea Signed Date: 10/08/2024 19:05 ET Workstation ID: [id number] Transcribed By: Self Edit Transcribed Date: 10/08/2024 17:30 ET Shellie Neal MD [facility] [place] PROCEDUR ES Final Result * Pulmonary function testing: Spirometry, Spirometry with Bronchodilator (10/04/2024 9:02 AM EDT) Narrative Scarlet Cano MD - 10/05/2024 2:44 PM EDT Table formatting from the original result was not included. Images from the original result were not included. [facility] [address] [place] [address] Pulmonary Functions Report Date of service: 10/04/24 Patient Name: Socorro Garcia Date of : 1970 Age: 54 y.o. Gender: female Ordering Provider: Shellie Neal MD Diagnosis listed on Order: Centrilobular emphysema ([facility] V24, [facility] V28) Reason for Exam: Order Questions Answers [...] Signed Date: 09/27/2024 14:58 ET Workstation ID: [id number] Transcribed By: Self Edit Transcribed Date: 09/27/2024 [...] Signed Date: 09/27/2024 14:58 ET Workstation ID: [id number] Transcribed By: Self Edit Transcribed Date: 09/27/2024 14:55 ET Shellie Neal MD CV VASCULAR PROC EDURES Final Result * XR Tibia Fibula 2 Views Right (09/23/2024 3:28 PM EDT) Anatomical Region Laterality Modality Lower Extremities, Lower Leg Right Rad iographic Imaging 09/23/2024 8:24 PM EDT Impressions 09/23/2024 8:26 PM EDT No acute fracture detected. POS - [id number] -------- FINAL REPORT -------- Dictated By: Nancy Licea Dictated Date: 09/23/2024 20:24 ET Assigned Physician: Nancy Licea Reviewed and Electronically Signed By: Nancy Licea Signed Date: 09/23/2024 20:26 ET Workstation ID: [id number] Transcribed By: Self Edit Transcribed Date: 09/23/2024 [...] IMPRESSION: No acute fracture detected. POS - [id number] -------- FINAL REPORT -------- Dictated By: Nancy Licea Dictated Date: 09/23/2024 20:24 ET Assigned Physician: Nancy Licea Reviewed and Electronically Signed By: Nancy Licea Signed Date: 09/23/2024 20:26 ET Workstation ID: [id number] Transcribed By: Self Edit Transcribed Date: 09/23/2024 20:24 ET Shellie Neal MD IMG XR PROCEDURE S Final Result * Thyroid stimulating hormone with reflex to free t4 and free t3 (09/20/2024 9:14 AM EDT) TSH 2.78 0.40 - 4.00 mcIU/mL LAB CHEMISTRY METHOD 09/20/2024 1:41 PM EDT [facility] Blood Venous blood specimen / Unknown Venipuncture / Unknown 09/20/2024 9:14 AM EDT 09/20/2024 9:14 AM EDT Shellie Neal MD LAB BLOOD ORDERA BLES Final Result [facility] [address] [place] [address], [place] [phone] * CT Chest wo Contrast (Lung-RADS F/U) [...] Dose Chest CT in 12 months. [place] ([id number]) -------- FINAL REPORT -------- Dictated By: Kat Moya Dictated Date: 08/26/2024 09:40 ET Assigned Physician: Kat Moya Reviewed and Electronically Signed By: Kat Moya Signed Date: 08/26/2024 09:50 ET Workstation ID: [id number] Transcribed By: Self Edit Transcribed Date: 08/26/2024 09:40 ET Narrative 08/26/2024 9:50 AM EDT History: 53 year-old current smoker, asymptomatic, for short-term follow-up of a lung RADS 0 lesion. Comparison: 02/09/24, 01/27/23 Technique: Helical volumetric imaging of the thorax was performed, using low- dose technique, without IV contrast. DLP: 158.31 mGy/cm CTDIvol: 4.83 mGy GE TOMODOpeed VCT Iterative reconstruction technique Findings: Lungs and [...] History: 53 year-old current smoker, asymptomatic, for psdhw-[id number]-ve of a lung RADS 0 lesion. Comparison: 02/09/24, 01/27/23 Technique: Helical volumetric imaging of the thorax was performed, usinglow-dose technique, without IV contrast. DLP: 158.31 mGy/cm CTDIvol: 4.83 mGy GE TOMODOpeed VCT Iterative reconstruction technique Findings: Lungs and [...] Low Dose Chest CT in 12 months. Teleliliya SMITH ([id number]) -------- FINAL REPORT -------- Dictated By: Kat Moya Dictated Date: 08/26/2024 09:40 ET Assigned Physician: Kat Moya Reviewed and Electronically Signed By: Kat Moay Signed Date: 08/26/2024 09:50 ET Workstation ID: [id number] Transcribed By: Self Edit Transcribed Date: 08/26/2024 09:40 ET Cherie SMITH IM CT PROCEDURES Final Resul t * (ABNORMAL) Lipid panel with reflex to direct LDL (05/31/2024 9:52 AM EDT) Cholesterol 223(H) 0 - 200 mg/dL LAB CHEMISTRY METHOD 05/31/2024 1:59 PM EDT [facility] Triglycerides 227(H) 0 - 150 mg/dL LAB CHEMISTRY METHOD 05/31/2024 1:59 PM EDT [facility] HDL 46 >=40 mg/dL LAB CHEMISTRY METHOD 05/31/2024 1:59 PM EDT [facility] LDL Calculated 132(H) 0 - 100 mg/dL LAB CHEMISTRY METHOD 05/31/2024 1:59 PM EDT [facility] VLDL Cholesterol [place] 45.4 mg/dL LAB CHEMISTRY METHOD 05/31/2024 1:59 PM EDT [facility] Non HDL Chol. (LDL+VLDL) 177(H) <145 mg/dL LAB CHEMISTRY METHOD 05/31/2024 1:59 PM EDT [facility] Chol/HDL Ratio 4.8(H) 0.0 - 4.4 LAB CHEMISTRY METHOD 05/31/2024 1:59 PM EDT [facility] Blood Venous blood specimen / Unknown Venipuncture / Unknown 05/31/2024 9:52 AM EDT 05/31/2024 9:52 AM EDT Shellie Neal MD LAB BLOOD ORDERA BLES Final Result [facility] [address] [place] [address], * CT Lung Screening (02/09/2024 9:12 AM [...] Signed Date: 02/12/2024 09:44 ET Workstation ID: [id number] Transcribed By: Self Edit Transcribed Date: 02/12/2024 09:01 ET Narrative 02/12/2024 9:44 AM EST History: 53 year-old 27 pack-year current smoker, asymptomatic, for lung cancer screening. Comparison: 01/27/23 Technique: Helical volumetric imaging of the thorax was performed, using low- dose technique, without IV contrast. DLP: 162.24 mGy/cm CTDIvol: 4.83 mGy GE TOMODOpeed VCT Iterative reconstruction technique Findings: Lungs and [...] contrast. DLP: 162.24 mGy/cm CTDIvol: 4.83 mGy GE TOMODOpeed VCT Iterative reconstruction technique Findings: Lungs and [...] Signed Date: 02/12/2024 09:44 ET Workstation ID: [id number] Transcribed By: Self Edit Transcribed Date: 02/12/2024 09:01 ET us Alonzo Wolfe MD IMG CT PROCEDURES Final Result * SCREENING MAMMOGRAPHY BI 2-VIEW BREAST INC CAD (12/01/2023 3:33 PM EDT) Anatomical Region Laterality Modality Radiographic Bertha ging 11/15/2022 6:43 PM EDT Narrative 12/04/2023 [...] evidence of malignancy. BI-RADS 1 - negative [address] [address] Procedure Note Nancy Licea MD - 12/26/2023 [...] evidence of malignancy. BI-RADS 1 - negative [address] [address] Shellie Neal MD IMG XR PROCEDURE S Final Result * Colonoscopy (05/06/2022) Pathologist [facility] Colonoscopy no interpretation , abstracted Anatomical Region Laterality Modality Other Historical Provider HEALTH MAINTENANCE Final Result * HIV Screening (01/28/2022) Pathologist [facility] HIV Screening abstracted [facility] Provider HEALTH MAINTENANCE Final Result * Hepatitis C Screening (01/28/2022) Pathologist [facility] Hepatitis C Screening abstracted [facility] Provider HEALTH MAINTENANCE Final Result from Last 3 Months or Most Recently Relevant to Health Maintenance Insurance [employer] Care Teams Cafeteria Aide Relationship Specialty Start Date End Date Shellie Neal MD [address] [facility], [place] PCP - General Internal Medicine 09/06/21
--- OUTSIDE RECORDS SUMMARY | 2024-11-22 10:48 | XMS_ITS | Data Portability ---
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 On examination there is a small amount of normal cerumen but no fungal debris. Recommended she continue to use DermOtic internally and will prescribe Lotrisone for external use. Instructions for proper use were given. Follow-up in 4 months for cerumen removal. pete Not available 09/08/2023 09:34:49 04/19/2024 04/19/2024 53-year-old female with history of cerumen and fungal dermatitis presents for reevaluation. No sign of recurrent fungal dermatitis. Continue DermOtic and Lotrisone as prescribed. No cerumen impaction today. She request 6-month follow-up which will be arranged. pete Not available 04/19/2024 13:26:10 10/18/2024 10/18/2024 54-year-old female presents for evaluation of disequilibrium. Otologic exam is unremarkable today. Audiometric testing was obtained today and is stable when compared to previously obtained results. She would be an excellent candidate for amplification. She is not quite sure she wants to take this step yet but was given medical clearance and a copy of her hearing test [facility]. As she is having no room spinning vertigo and no changes in hearing her disequilibrium is likely centrally mediated. Strongly recommended she see neurology for further assessment. Will call for reevaluation if she has any room spinning vertigo or change in hearing. All questions were answered. [email or web address] Not available 10/18/2024 12:20:44 Plan of Treatment Reminders Order Date Submit Date Provider Last Modified By Organization Details Last Modified Time Details Appointments Hearing Test 2025 09:00A M Hearing Test Not available Not available Not available Establish ed 15 2025 09:15A M BILL CANDELARIO PA-C Not available Not available Not available Lab None recorded. Referral None recorded. Procedures None recorded. Surgeries None recorded. Imaging None recorded. Medication Orders clotrimaz ole-betam ethasone 1 %-0.05 % topical cream 2023 025 [facility]acy #[id number], [address] [place] [address], [id number], 04/19/2024 13:07:21 Patient TargetsNo targets recorded. Patient InstructionsNo instructions recorded. Reason for Referral None Reported. Results Created Date Observation Date Name Description Value Unit Range Abnormal Flag Note LastModifiedBy Organization Detail LastModifiedTime 10/17/19 24 03/02/2018 imagi ng/di agnos tic resul t No observ ation record ed. [email or web address] Not Available 19:42:24 10/17/19 24 09/19/2018 imagi ng/di agnos tic resul t No observ ation record ed. [email or web address] Not Available 19:42:35 10/17/19 24 09/19/2018 imagi ng/di agnos tic resul t No observ ation record ed. [email or web address] Not Available 19:42:36 10/17/19 24 09/23/2019 imagi ng/di agnos tic resul t No observ ation record ed. [email or web address] Not Available 19:42:42 10/17/19 24 10/27/2020 imagi ng/di agnos tic resul t No observ ation record ed. [email or web address] Not Available 19:42:52 08/20/10/27/2020 imagi ng/di agnos tic resul t No observ ation record ed. [email or web address] Not Available 19:42:54 10/17/1912/02/2022 imagi ng/di agnos tic resul t No observ ation record ed. [email or web address] Not Available 19:43:03 10/19/19 audio gram No observ ation record ed. [email or web address] Not Available 2024 13:46:29 Result Notes None recorded. Problems Name Problem SNOMED Code Status Onset Date Resolution Date Notes Provider Name and Address Organization Details Recorded Time Sensorine ural hearing loss of bilateral ears 487460159 Active 2018 Sensorine ural hearing loss, bilateral ; Note: Date Diagnosed : 03/02/2018 4:11 PM (H90.3) Not Available [facility] 4 02:25:28 Tinnitus of right ear 81621944595 08 Active 2018 Tinnitus, right ear; Note: Date Diagnosed : 03/02/2018 4:25 PM (H93.11) Not Available [facility] 4 02:25:50 Itching of skin 691022333 Active 2018 Pruritus, unspecifi ed; Note: Date Diagnosed : 09/17/2018 5:33 PM (L29.9) Not Available [facility] 4 02:25:44 Infective otitis externa of right ear 86825864133 01049 Active 2018 Other infective otitis externa, right ear; Note: Date Diagnosed : 09/17/2018 5:33 PM (H60.391) Not Available [facility] 4 02:25:48 Bilateral tinnitus 34529511766 02 Active 2018 Tinnitus, bilateral ; Note: Date Diagnosed : 09/19/2018 10:14 AM (H93.13) Not Available [facility] 4 02:25:56 Infective otitis externa of left ear 27772214457 41165 Active 2018 Other infective otitis externa, left ear; Note: Date Diagnosed : 10/10/2018 2:04 PM (H60.392) Not Available [facility] 4 02:25:40 Vertigo of central origin NOS Active 2018 Vertigo of central origin, unspecifi ed ear; Note: Date Diagnosed : 11/30/2018 10:01 AM (H81.49) Not Available [facility] 4 02:25:27 Refractor y migraine 816872994 Active 2018 Other migraine, intractab le, without status migrainos us; Note: Date Diagnosed : 11/30/2018 10:01 AM (G43.819) Not Available [facility] 4 02:25:56 Impacted cerumen in left ear 65236305507 18835 Active 2019 Impacted cerumen, left ear; Note: Date Diagnosed : 04/25/2019 9:46 AM (H61.22) Not Available [facility] 4 02:25:23 Impacted cerumen of bilateral ears 11087172917 63360 Active 2019 Impacted cerumen, bilateral ; Note: Date Diagnosed : 09/23/2019 11:31 AM (H61.23) Not Available [facility] 4 02:26:04 Candidal otitis externa 58924538 Active 2021 Candidal otitis externa; Note: Date Diagnosed : 09/14/2021 4:02 PM (B37.84) Note: Date Diagnosed : 09/14/2021 4:02 PM (B37.84) Not Available [facility] 4 00:54:36 Chronic mycotic otitis externa 306988279 Active 2021 Chronic mycotic otitis externa; Note: Date Diagnosed : 09/14/2021 4:01 PM (380.15) Note: Date Diagnosed : 09/14/2021 4:01 PM (380.15) Not Available [facility] 4 00:54:49 Eczema NOS Active 2021 Eczema NOS; Note: Date Diagnosed : 10/22/2021 9:27 AM (L30.9) Not Available [facility] 4 02:25:51 Impacted cerumen in right ear 91243546764 77824 Active 2022 Impacted cerumen, right ear; Note: Date Diagnosed : 12/02/2022 2:50 PM (H61.21) Not Available [facility] 4 02:25:38 Dermal mycosis 68240239 Active 2023 BILL CANDELARIO PA-C [address] [facility],[place] [address], [place], [address] , [facility] - [facility] [place] 4 09:35:16 Loss of equilibri 36454642 Active 2024 BILL CANDELARIO PA-C [address] [facility],[place] [address], [place], [address] , [facility] [place] 5 12:20:55 Problem Notes None recorded. Procedures Surgical History Date Name Laterality Status Provider Name and Address Organization Details Recorded Time 10/18/2024 Comp Audio with Tymps - 85019 & 91019 completed NETTE GUO [address] [facility],[place] [address], [place], [address], [facility] - [facility] [place] 10/18/2024 12:02:38 Imaging Results None recorded. Procedure Notes None recorded. Medical Equipment None Reported. Allergies No known drug allergies Medications Name Sig Start Date Stop Date Status Note LastModified by Organization Details LastModified Time methocarb douglas 500 mg tablet active Medicati on ID: [id number] B rand Name: methocar bamol Se nd Method: E-Prescr ibed Sub s Allowed: subs OK Medic ationGen ericName : methocar bamol Not Available Not Available Not Available clotrimaz ole 10 mg patel SLOWLY DISSOLVE 1 TABLET BY MOUTH 5 TIMES A DAY FOR 10 DAYS. active Not Available Not Available No t Available venlafaxi ne ER 37.5 mg capsule,e xtended release 24 hr 2020 active Medicati on ID: [id number] B rand Name: venlafax ine Send Method: E-Prescr ibed Sub s Allowed: subs OK Medic ationGen ericName : venlafax ine Not Available Not Available Not Available prednison e 10 mg tablet 04/19 completed Medicati on ID: [id number] B rand Name: predniso ne Send Method: E-Prescr ibed Sub s Allowed: subs OK Medic ationGen ericName : predniso ne Not Available Not Available Not Available paroxetin e 10 mg tablet TAKE 1 TABLET BY MOUTH 1 TIME EACH DAY IN THE MORNING. active Not Available Not Available No t Available albuterol sulfate 2.5 mg/3 mL (0.083 %) solution for nebulizat ion INHALE 1 VIAL BY NEBULIZA TION EVERY 4 HOURS IF NEEDED FOR WHEEZING OR SHORTNES S OF BREATH active Not Available Not Available No t Available trazodone 50 mg tablet TAKE 1 TABLET BY MOUTH EVERYDAY AT BEDTIME active Not Available Not Available No t Available azithromy roosevelt 250 mg tablet TAKE 2 TABLETS BY MOUTH TODAY, THEN TAKE 1 TABLET DAILY FOR 4 DAYS DIRECTED 04/19 completed Not Available Not Available Not Available ibuprofen 800 mg tablet TAKE 1 TABLET BY MOUTH EVERY 8 HOURS NEEDED FOR PAIN active Not Available Not Available No t Available Lidocaine Viscous 2 % mucosal solution APPLY TOPICALL Y TO ULCERATI ONS 2 TO 4 TIMES A DAY NEEDED FOR PAIN active Not Available Not Available No t Available simethico ne 180 mg capsule TAKE 1 CAPSULE BY MOUTH 3 TIMES DAILY (WITH MEALS). active Not Available Not Available No t Available benzonata te 200 mg capsule TAKE 1 CAPSULE BY MOUTH THREE TIMES A DAY FOR 10 DAYS 04/19 completed Not Available Not Available Not Available clotrimaz ole-betam ethasone 1 %-0.05 % lotion Apply a small amount three times a day as directed 04/19 completed Medicati on ID: [id number] D uration Value: 14 Prescri bed By Name: KRISTA Herman nd Name: debra duran Send Method: E-Prescr ibed Sub s Allowed: subs OK Speci al Instruct ion: Apply with finger to ear canal skin. Me dication GenericN jessica: clotrima margo-bet amethaso roger Not Available Not Available Not Available sucralfat e 1 gram tablet TAKE 1 TABLET BY MOUTH 4 TIMES A DAY, TAKE 1 HOUR BEFORE MEALS AND AT BEDTIME active Not Available Not Available No t Available ondansetr on HCl 4 mg tablet TAKE 1 TABLET (4 MG TOTAL) BY MOUTH EVERY 8 (EIGHT) HOURS IF NEEDED FOR NAUSEA FOR UP TO 10 DAYS. active Not Available Not Available No t Available prednison e 20 mg tablet TAKE 2 TABLETS (40 MG TOTAL) BY MOUTH ONE TIME EACH DAY FOR 5 DAYS. active Not Available Not Available No t Available rizatript an 10 mg tablet TAKE 1 TABLET BY MOUTH NEEDED AT ONSET OF MIGRAINE ORALLY ONCE A DAY 30 DAY(S) active Not Available Not Available No t Available metronida zole 500 mg tablet TAKE 1 TABLET BY MOUTH EVERY 12 HOURS FOR 7 DAYS 04/19 completed Not Available Not Available Not Available tramadol 50 mg tablet TAKE 1 TABLET BY MOUTH AT BEDTIME NEEDED FOR PAIN (SEVERE) FOR UP TO 7 DAYS. active Not Available Not Available No t Available butalbita l-acetami nophen-ca ffeine 50 mg-325 mg-40 mg tablet TAKE 1-2 TABLET(S ) BY MOUTH DAILY NEEDED FOR HEADACHE active Not Available Not Available No t Available amoxicill in 500 mg tablet TAKE 1 TABLET BY MOUTH TWICE A DAY FOR 7 DAYS 04/19 completed Not Available Not Available Not Available amitripty line 25 mg tablet 10/27 completed Medicati on ID: [id number] D uration Value: 30 Brand Name: amitript yline Se nd Method: E-Prescr ibed Sub s Allowed: subs OK Speci al Instruct ion: TAKE 1 TABLET BY MOUTH EVERYDAY AT BEDTIME Medicati onGeneri cName: amitript yline Not Available Not Available Not Available methocarb douglas 750 mg tablet TAKE 1 TABLET BY MOUTH 3 TIMES A DAY active Not Available Not Available No t Available amitripty line 10 mg tablet 09/22 completed Medicati on ID: [id number] D uration Value: 30 Reason: () Brand Name: amitript yline Se nd Method: E-Prescr ibed Sub s Allowed: subs OK Speci al Instruct ion: TAKE 1 TAB BY MOUTH AT BEDTIME FOR 180 DAYS. Me dication GenericN jessica: amitript yline Not Available Not Available Not Available meclizine 25 mg tablet 09/22 completed Medicati on ID: [id number] D uration Value: 10 Reason: () Brand Name: meclizin e Send Method: E-Prescr ibed Sub s Allowed: subs OK Medic ationGen ericName : meclizin e Not Available Not Available Not Available sulfaceta mide sodium 10 % eye drops 2018 active Medicati on ID: [id number] D uration Value: 14 Prescri bed By Name: KRISTA Herman nd Name: sulfacet amide sodium S end Method: E-Prescr ibed Sub s Allowed: subs OK Speci al Instruct ion: 4 drops to both EARS BID x 3 days Med icationG enericNa me: sulfacet amide sodium Not Available Not Available Not Available esomepraz ole magnesium 40 mg capsule,d elayed release TAKE 1 CAPSULE BY MOUTH 1 TIME EACH DAY BEFORE BREAKFAS T. DO NOT OPEN CAPSULE. active Not Available Not Available No t Available triamcino lone acetonide 0.1 % topical ointment active Medicati on ID: [id number] B rand Name: triamcin olone acetonid e Send Method: E-Prescr ibed Sub s Allowed: subs OK Medic ationGen ericName : triamcin olone acetonid e Not Available Not Available Not Available clotrimaz ole-betam ethasone 1 %-0.05 % topical cream APPLY TO EAR CANAL WITH FINGERTI P NEEDED FOR ITCHING 04/19 completed Not Available Not Available Not Available lansopraz ole 30 mg capsule,d elayed release TAKE 1 CAPSULE BY MOUTH 1 TIME EACH DAY. DO NOT CRUSH OR CHEW. active Not Available Not Available No t Available prednison e 50 mg tablet TAKE 1 TABLET BY MOUTH EVERY DAY FOR 3 DAYS 04/19 completed Not Available Not Available Not Available lidocaine 5 % topical patch PLACE 1 PATCH ONTO THE SKIN EVERY 24 HOURS. APPLY FOR NO MORE THAN 12 HOURS IN ANY 24 HOUR PERIOD. 04/19 completed Not Available Not Available Not Available levothyro xine 150 mcg tablet TAKE 1 TABLET BY MOUTH DAILY AND SKIP SUNDAYS active Not Available Not Available No t Available clotrimaz ole 1 % topical solution 2023 active Medicati on ID: [id number] D uration Value: 28 Brand Name: clotrima zole Sen d Method: E-Prescr ibed Sub s Allowed: subs OK Speci al Instruct ion: 4 drops to affected ear tid X 4 weeks Me dication GenericN jessica: clotrima zole Not Available Not Available Not Available Ear Drops (carbamid e peroxide) 6.5 % PLEASE SEE ATTACHED FOR DETAILED DIRECTIO NS 04/19 completed Not Available Not Available Not Available diclofena c sodium 75 mg tablet,de layed release TAKE 1 TABLET BY MOUTH TWICE A DAY FOR 30 DAYS active Not Available Not Available No t Available clindamyc in 2 % vaginal cream 1 APPFUL VAGINALL Y BEDTIME FOR 7 DAYS FOR 3 DAYS active Not Available Not Available No t Available ammonium lactate 12 % topical cream APPLY TO HANDS & FEET TWICE A DAY active Not Available Not Available No t Available lorazepam 1 mg tablet TAKE 1 TABLET BY MOUTH 1 HOUR PRIOR TO MRI SCAN. MAY REPEAT ONCE 04/19 completed Not Available Not Available Not Available methylpre dnisolone 4 mg tablets in a dose pack TAKE 6 TABLETS ON DAY 1 DIRECTED ON PACKAGE AND DECREASE BY 1 TAB EACH DAY FOR A TOTAL OF 6 DAYS active Not Available Not Available No t Available propranol ol 20 mg tablet TAKE 1 TABLET BY MOUTH TWICE A DAY FOR 90 DAYS active Not Available Not Available No t Available hydroxyzi ne HCl 10 mg tablet active Medicati on ID: [id number] B rand Name: hydroxyz ine HCl Send Method: E-Prescr ibed Sub s Allowed: subs OK Medic ationGen ericName : hydroxyz ine HCl Not Available Not Available Not Available colestipo l 1 gram tablet TAKE 1 TABLET BY MOUTH 2 TIMES DAILY FOR 90 DAYS. active Not Available Not Available No t Available loratadin e 10 mg tablet TAKE 1 TABLET BY MOUTH EVERY DAY active Not Available Not Available No t Available nabumeton e 500 mg tablet 11/30 completed Medicati on ID: [id number] D uration Value: 30 Reason: () Brand Name: nabumeto ne Send Method: E-Prescr ibed Sub s Allowed: subs OK Speci al Instruct ion: TAKE 1 TABLET BY MOUTH 2 TIMES DAILY FOR 30 DAYS. Me dication GenericN jessica: nabumeto ne Not Available Not Available Not Available tobramyci n 0.3 %-dexamet hasone 0.1 % eye drops,[facility] 11/07 completed Medicati on ID: [id number] D uration Value: 14 Reason: () Brand Name: tobramyc in-dexam ethasone Send Method: E-Prescr ibed Sub s Allowed: subs OK Speci al Instruct ion: INSTILL 4 DROPS IN EFFECTED EAR TWICE DAILY Me dication GenericN jessica: tobramyc in-dexam ethasone Not Available Not Available Not Available neomycin- polymyxin -hydrocor t 3.5 mg-10,000 unit/mL-1 % ear drops,carole p 04/19 completed Medicati on ID: [id number] B rand Name: neomycin -polymyx in-HC Se nd Method: E-Prescr ibed Sub s Allowed: subs OK Medic ationGen ericName : neomycin -polymyx in-HC Not Available Not Available Not Available hydrocort isone 1 % topical cream with perineal applicato r active Medicati on ID: [id number] B rand Name: hydrocor tisone S end Method: E-Prescr ibed Sub s Allowed: subs OK Medic ationGen ericName : hydrocor tisone Not Available Not Available Not Available escitalop lokesh 10 mg tablet TAKE 1/2 TABLETS BY MOUTH DAILY FOR 7 DAYS, THEN 1 TABLET DAILY FOR 90 DAYS. active Not Available Not Available No t Available Flovent HFA 110 mcg/actua tion aerosol inhaler INHALE 1 PUFF INTO LUNGS TWICE A DAY 04/19 completed Not Available Not Available Not Available ProAir HFA 90 mcg/actua tion aerosol inhaler active Medicati on ID: [id number] B rand Name: ProAir HFA Send Method: E-Prescr ibed Sub s Allowed: subs OK Medic ationGen ericName : ProAir HFA Not Available Not Available Not Available DermOtic Oil 0.01 % ear drops APPLY 2 DROP INTO BOTH EARS DIRECTED 2 TIMES A WEEK AND NEEDED 04/19 completed Not Available Not Available Not Available Vitamin D3 50 mcg (2,000 unit) tablet TAKE 1 TABLET (2,000 UNITS TOTAL) BY MOUTH ONCE DAILY active Not Available Not Available No t Available Vitals Date Recorded Body height Body mass index (BMI) Body weight Provider Name and Address Organization Details Last Updated DateTime 09/08/2023 160.02 cm 34.7 kg/m2 39221.1 g Brionna Armendariz [place] - [facility] 09/08/2023 08:57:05 Date Recorded Body height Body mass index (BMI) Body weight Provider Name and Address Organization Details Last Updated DateTime 10/18/2024 160.02 cm 34.7 kg/m2 51528.1 g JESUS FINK [place] - [facility] 10/18/2024 11:22:29 Social History None recorded. Functional Status None recorded. Mental Status None recorded. Family History Nothing Reported. Medical History No medical history recorded. Gynecological HistoryNo gynecological history recorded. Obstetrics History GPAL:G 0 P 0 0 0 0 Past Encounters Encounter ID Performer Location Encounter Start Date Encounter Closed Date Diagnosis/Indication Diagnosis SNOMED-CT Code Diagnosis ICD10 Code Diagnosis IMO Codes Diagnosis Note [id number] BILL CANDELARIO PA-C [facility] [address] [address] 09/08/2023 08:47:21 09/08/2023 09:16:38 Itching of skin 526893457 L29.9 Chronic my cotic otitis externa 624398796 H60.399 Dermal mycosis 62569993 B36.9 Candidal o titis externa 25609127 B37.84 [id number] BILL CANDELARIO PA-C [facility] [address] [address] 04/19/2024 13:01:59 04/19/2024 13:23:44 Candidal otitis externa 19208079 B37.84 [id number] BILL CANDELARIO PA-C [facility] [address] [address] 10/18/2024 11:05:07 10/18/2024 12:58:03 Sensorineural hearing loss of bilateral ears 897972714 H90.3 Audiologic al evaluation results: Right ear: Mild sloping to a moderate sensorineu ral hearing loss with excellent word recognitio n. Left ear: Mild sloping to moderately severe sensorineu ral hearing loss with excellent word recognitio n. Tympanomet ry: Right Ear:Type A Left Ear:Type A Loss of equilibrium 8941 9008 R42 83894 Health Concerns Section Related Observation LastModified by Organization Detai ls LastModified Time None Recorded Concern Status LastModified by Organization Details LastModified Time None Recorded Advance Directives Directive None Recorded Payers Insurance Date Sequence Insurance Name Policy Number Policy Peck Covered Member ID Peck Member ID Guarantor Name 10/18/2024 1 [facility] (MEDICAID REPLACEMENT - O) [id number] Socorro Augustin [id number] Socorro Augustin Notes Date Note Type Note Provider Name and Address Organization Details Recorded Time 09/08/2023 text/html ROS as noted in the [facility] 53-year-old female presents for reevaluation. History of recurrent otitis externa. Currently the ears feel dry and itchy. Using DermOtic occasionally but getting some dryness on the outside as well. DANIS DEGROOT MD [address] [facility],[address], [address], [facility] 09/08/2023 10:45:13 04/19/2024 text/html ROS as noted in the [facility] 53-year-old female presents for reevaluation of cerumen and recurrent fungal dermatitis. She has been using DermOtic and Lotrisone as needed for itching. Overall has been doing very well. AUDREY GROSS MD [address] [facility],[address], [address], [facility] 04/20/2024 15:28:12 10/18/2024 text/html ROS as noted in the [facility] 54-year-old female presents for evaluation of disequilibrium. She is seen here frequently for ear cleaning with a history of recurrent fungal OE. She has not been symptomatic fungal OE but has been having difficulty with her balance. She has no room spinning vertigo. Her difficulty is with going up stairs. She feels as though if she does not hold down she will fall backwards. She did have a fall recently. After the fall she had MRI of the brain which was according to patient unremarkable. She is scheduled to see neurology in the near future. She also feels as though when she closes her eyes and is standing such as when she is washing her hair in the shower that there is significant unsteadiness. She has no difficulty with the feeling in her feet and no diabetes. DANIS DEGROOT MD [address] [facility],[address], [address], [facility] 10/18/2024 12:47:58 OBGyn Episode No OBEpisode recorded.
== END 2024-11-22 10:20 | disposition home or self-care (01) ==
LOC: HO.HSM 09:45
PROVIDERS: PCP Family Medicine; Visit Provider Registered Nurse
DX: G43.009 Migraine without aura, not intractable, without status migrainosus (principal); G57.53 Tarsal tunnel syndrome, bilateral lower limbs; G57.31 Lesion of lateral popliteal nerve, right lower limb
CPT/HCPCS: 99214

== ENCOUNTER → 2024-11-22 09:45 | Outpatient (BNVA) | payer OTHER, SELFPAY | PROVIDERS: PCP Family Medicine; Visit Provider Registered Nurse | DX: G43.009 Migraine without aura, not intractable, without status migrainosus (principal); G57.31 Lesion of lateral popliteal nerve, right lower limb; G57.53 Tarsal tunnel syndrome, bilateral lower limbs; Z79.899 Other long term (current) drug therapy | CPT/HCPCS: 99212 ==

== ENCOUNTER 2025-02-07 08:59 | Outpatient (AMB) | payer OTHER, SELFPAY ==
--- NOTE | 2025-02-07 09:01 | MHC.OFFVIS ---
Vital Signs 02/07/25 09:15 BP 117/58 L Position Sitting Pulse 80 Intake Visit Reasons: 3 months . [facility] Allergies No Known Allergies (No Known Allergies*) Allergy (Verified 02/07/25 09:04) Medication List - Last Reconciled 02/07/25 by Vanessa Benavidez CNP lzuocruvuo-ljewzyeoqytxi-knik 50-325-40 mg 1 tab PO DAILY PRN clindamycin phosphate 2% 1 appful vaginal BEDTIME 7 days diclofenac sodium 75 mg PO BID gabapentin 300 mg PO BEDTIME 30 days levothyroxine 1 tab PO DAILY methocarbamol 750 mg PO TID methylprednisolone (Medrol (Kris)) 4 mg PO DAILY oxycodone 5 mg PO Q6H PRN propranolol 20 mg PO BID 90 days rizatriptan 10 mg PO DAILY PRN trazodone 1 tab PO BEDTIME HPI Comments Details: 54-year-old woman with migraine headaches and more recently, unsteadiness with numbness and tingling in feet that has been ongoing for few months. She was having more migraines. She started to get more migraines around 11/2024. Migraines were associated with photophobia, sonophobia, and nausea. Rizatriptan helped most of the time, but if that did not work, she would take butalbital which would help calm it down. She has been having to call out of work about 1x/week because of migraines. She completed PT. Walking with cane, no falls. She was still sometimes having sharp, shooting pains in feet. She was hesistant to take gabapentin and has not been using medication. When pain was bad, she would take diclofenac or methocarbomal which helped some. Sleep was so-so. She had FMLA forms to be completed. [facility] Medical History (Updated 11/22/24 @ 10:13 by Vanessa Benavidez CNP) Paresthesia of skin Obesity Migraine without aura Insomnia Depression with anxiety Adult hypothyroidism Migraines Surgical History H/O thyroidectomy H/O: hysterectomy Social History Patient Tobacco Use Status: Current everyday Tobacco user Tobacco use type: Cigarette Cigarettes Per Day: 15 Years Smoked: 42 Review of Systems Const Denies chills, Denies daytime sleepiness, Reports difficulty sleeping, Denies fatigue, Denies fever(s), Denies frequent falls, Reports headache(s), Denies increased appetite, Denies poor appetite, Denies snoring, Denies weakness, Denies weight gain and Denies weight loss Eyes Denies loss of vision ENT Denies vertigo, Denies dizziness and Reports headache(s) Card Denies chest pain at rest, Denies chest pain with activity, Denies syncope, Denies leg edema and Denies palpitations Resp Denies snoring GI Denies constipation, Denies heartburn, Denies diarrhea and Denies nausea Denies urinary frequency, Denies urinary incontinence and Denies urinary urgency Musc Denies abnormal gait, Reports numbness and Reports tingling Skin/Breast Denies dry skin and Denies rash Neuro Denies abnormal gait, Denies vertigo, Denies dizziness, Denies syncope, Denies frequent falls, Reports headache(s), Denies lack of coordination, Denies loss of vision, Denies memory loss, Reports numbness, Denies restless legs, Denies seizure-like activity, Reports tingling, Denies paresthesias, Denies tremor(s) and Denies weakness Psych Denies anxiety, Denies depression, Denies auditory hallucinations, Denies memory loss, Denies visual hallucinations and Denies suicidal ideation Endo Denies fatigue and Denies palpitations Physical Exam Const Other: General Appearance:? normal, in no acute distress. Skin:? no rashes, no significant birthmarks. Heart:? S1, S2 normal, no murmurs. Lungs:? clear anteriorly and posteriorly. Extremities:? no edema. Psych:? alert, oriented, cognitive function intact, cooperative with exam. Neuro Other: Mental Status:?Normal attention, orientation, memory and affect.? Cranial Nerves:?Pupils are equal, round and reactive to light. External occular muscles are intact. Visual farrell are full. Face is symmetrical. Facial sensations are normal. Tongue is midline. Palate elevates symmetrically. Shoulder shrugging is normal. Hearing to bedside conversation is normal. Sensory Exam:?Impaired joint position sensation. Rhomberg slightly positive. Coordination:?No ataxia,?no titubation.? Gait Exam: With cane. Cerebellar Signs:?Ltaqlt-re-fjqn is okay. Extrapyramidal System:?No tremor, rigidity with normal facial expressions.? Pronator Drift:?Not present.? Involuntary Movements:?No tremors seen.? Speech:?Normal.? Results Reviewed Results Reviewed: NCV/EMG LE 11/13/2024: 1. 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 Right superficial peroneal axonal sensory neuropathy 3. No evidence of generalized neuropathy or radiculopathy MRI brain [facility] at [place] in 09/2024: no evidence of recent infarction, intracranial hemorrhage, mass, or mass effect (reported) Assessment & Plan Assessment & Plan (1) Migraine without aura: Code(s): G43.009 - Migraine without aura, not intractable, without status migrainosus Category: Medical Qualifiers: Status migrainosus presence: without status migrainosus Intractability: not intractable Qualified Code(s): G43.009 - Migraine without aura, not intractable, without status migrainosus Plan: Increase propranolol ER 80mg 1 capsule daily. Continue rizatriptan 10mg 1 tablet as needed for migraine. Continue wvpsiqreta-QYYX-nyhi 50-325-40mg 1-2 tablets as needed for headache #10 for 30 days. FMLA forms completed and returned to patient. Follow up in 3 months or sooner as needed. (2) Tarsal tunnel syndrome, bilateral: Code(s): G57.53 - Tarsal tunnel syndrome, bilateral lower limbs Category: Medical Plan: May use gabapentin 300mg 1 capsule at bedtime as needed. (3) Peroneal neuropathy: Code(s): G57.30 - Lesion of lateral popliteal nerve, unspecified lower limb Category: Medical Qualifiers: Laterality: right Qualified Code(s): G57.31 - Lesion of lateral popliteal nerve, right lower limb Plan Meds tried: Amitryptiline (worked but caused dry mouth), topiramate, venlafaxine, sumatriptan, butalbital, nurtec, rizatriptan Medications: New propranolol ER (Inderal LA) 80 mg PO BEDTIME 90 caps 1RF 90 days rizatriptan take 1 tab at onset of headache; if no relief may repeat 1 tab after at least 4 hrs; max = 2 tabs/24 hr PO 10 tabs 5RF 30 days Changed From idykwgxrli-gzmlacfnwnzgn-xzyb 50-325-40 mg 1 tab PO DAILY PRN pain To djsjcqgvci-hrjayotzhiogq-zmzd 50-325-40 mg 1 tab PO DAILY PRN 10 tabs 2RF headache 30 days Discontinued propranolol Discontinued Reason: Doctor's Order 20 mg PO BID 90 days 180 tabs 1RF rizatriptan Discontinued Reason: Order 10 mg PO DAILY PRN migraine Coding Level of Care Code Est Pt Level 4 (30287) Diagnoses Migraine without aura and without status migrainosus, not intractable G43.009 Status migrainosus presence: without status migrainosus Intractability: not intractable Tarsal tunnel syndrome, bilateral G57.53 Neuropathy of right peroneal nerve G57.31 Laterality: right
[2025-02-07 09:15] VITALS: BP 117/58; PULSE 80
== END 2025-02-07 09:28 | disposition home or self-care (01) ==
LOC: HO.HSM 09:00
PROVIDERS: PCP Family Medicine; Visit Provider Registered Nurse
DX: G43.009 Migraine without aura, not intractable, without status migrainosus (principal); G57.53 Tarsal tunnel syndrome, bilateral lower limbs; G57.31 Lesion of lateral popliteal nerve, right lower limb
CPT/HCPCS: 99214

== ENCOUNTER → 2025-02-07 08:59 | Outpatient (BNVA) | payer OTHER, SELFPAY | PROVIDERS: PCP Family Medicine; Visit Provider Registered Nurse | DX: G43.009 Migraine without aura, not intractable, without status migrainosus (principal); G57.53 Tarsal tunnel syndrome, bilateral lower limbs; G57.31 Lesion of lateral popliteal nerve, right lower limb; Z79.899 Other long term (current) drug therapy | CPT/HCPCS: 99212 ==